=== PATIENT | female | born 1935 | race Two or more races ===

== ENCOUNTER → 2016-04-12 | Outpatient (CLI) | payer OTHER, MEDICAID ==
--- NOTE | 2016-04-12 17:08 | US ---
Complete Renal Ultrasound With Doppler Indication: Hypertension and an 81-year-old female; evaluate for renal artery stenosis.. Comparison: Renal sonography without Doppler assessment February 07, 2016. Findings: The kidneys are normal size. No hydronephrosis, shadowing renal calculi, or focal scarring. The echo genicity is normal. Renal measurements: Right: 8.6 cm long Left: 10.5 cm long Renal parenchymal thickness: Normal bilaterally. Doppler Evaluation: RAR - Renal artery PSV/Aortic PSV ( Normal is < 3.5) Right: 1.03 Left: 1.14 Right kidney: Peak systolic velocities in the main renal artery as follows: Proximal: 125 cm/sec Segmental arterial flow: Normal waveforms and upstroke times. Resistive index main renal artery, 0.87. (normal < 0.7) Upstroke times range between 37 and 51 (normal < 70 msec) Left kidney: Peak systolic velocities in the main renal artery as follows: Proximal: 138 cm/sec Segmental arterial flow: Normal waveforms and upstroke times. Resistive main renal artery; 0.84. Upstroke times range between 29 and 51 No abnormality of the renal veins is identified. Impression: Mild elevation in resistive indices with no convincing evidence for significant renal art erial stenosis to account for hypertension..
== END ==
LOC: FIMAGING 10:27
PROVIDERS: ATTEND Nurse Practitioner Family
DX: I10 Essential (primary) hypertension (principal)

== ENCOUNTER → 2016-09-22 | Outpatient (CLI) | payer OTHER, MEDICAID | LOC: FIMAGING 15:36 | PROVIDERS: ATTEND Family Medicine | DX: Z12.31 Encounter for screening mammogram for malignant neoplasm of breast (principal) | CPT/HCPCS: G0202 ==

== ENCOUNTER → 2017-04-30 | Outpatient (CLI) | payer OTHER, MEDICAID | LOC: FIMAGING 12:22 | PROVIDERS: ATTEND Family Medicine | DX: M43.17 Spondylolisthesis, lumbosacral region (principal); M51.36 Other intervertebral disc degeneration, lumbar region; M41.9 Scoliosis, unspecified; M54.9 Dorsalgia, unspecified; Z79.899 Other long term (current) drug therapy ==

== ENCOUNTER → 2017-06-30 | Outpatient (CLI) | payer OTHER, MEDICAID | LOC: FIMAGING 11:06 | PROVIDERS: ATTEND Physical Medicine & Rehabilitation | DX: M51.37 Other intervertebral disc degeneration, lumbosacral region (principal); M43.16 Spondylolisthesis, lumbar region ==

== ENCOUNTER → 2017-09-24 | Outpatient (CLI) | payer OTHER, MEDICAID | LOC: FIMAGING 12:53 | PROVIDERS: ATTEND Family Medicine | DX: Z12.31 Encounter for screening mammogram for malignant neoplasm of breast (principal) ==

== ENCOUNTER → 2017-12-13 | Outpatient (CLI) | payer OTHER, MEDICAID | LOC: BHFA 14:00 | PROVIDERS: ATTEND Internal Medicine Interventional Cardiology | DX: R60.9 Edema, unspecified (principal) ==

== ENCOUNTER 2018-01-14 23:52 | Emergency (ER) | payer OTHER, MEDICAID ==
[2018-01-15] MEDS ORDERED: ACETAMINOPHEN 500 MG TAB PO ONE (00:45)
[2018-01-15 00:47] VITALS: BP 156/59
--- NOTE | 2018-01-15 00:48 | EDPHY ---
H & P Stated Complaint: Increasing BP, headache Time Seen by Provider: 01/15/18 00:24 HPI/ROS: HPI The patient presents with elevated blood pressure readings tonight as high as 220 systolic in the setting of a mild diffuse throbbing headache. The patient has a longstanding history of hypertension. About 2 weeks ago she was taken off of metoprolol because it was believed to be causing a dry mouth. She was switched to atenolol. Today she had follow-up at [facility], there she was hypertensive with systolic in the 200s. The recommendation was for her to increase the atenolol dose and begin hydrochlorothiazide. She took both of these medications tonight, however her blood pressure remained elevated and she became concerned. She has had headaches that feel identical previously in the setting of high blood pressure. She has no changes in her vision, weakness of her arms or legs or any dizziness. She does not have any chest pain.. REVIEW OF SYSTEMS 10 systems were reviewed and negative with the exception of the elements mentioned in the history of present illness. PMHx: Hypertension Soc Hx: Here with her PHYSICAL General Appearance: Alert, no distress Eyes: Pupils equal and round no pallor or injection ENT, Mouth: Mucous membranes moist Respiratory: There are no retractions, lungs are clear to auscultation Cardiovascular: Regular rate and rhythm Gastrointestinal: Abdomen is soft and non-tender, no masses, bowel sounds normal Neurological: A&O, moves all extremities Skin: Warm and dry, no rashes Musculoskeletal: Neck is supple non tender Extremities: symmetrical, full range of motion Psychiatric: Patient is oriented X 3, there is no agitation Source: Patient, Family Exam Limitations: No limitations - Personal History Current Tetanus Diphtheria and Acellular Pertussis (TDAP): Yes - Medical/Surgical History Hx Asthma: No Hx Chronic Respiratory Disease: No Hx Diabetes: No Hx Cardiac Disease: No Hx Renal Disease: No Hx Cirrhosis: No Hx Alcoholism: No Hx HIV/AIDS: No Hx Splenectomy or Spleen Trauma: No Other PMH: HTN, MRI abnormal?, hysterectomy, hypothyroid. - Social History Smoking Status: Former smoker Constitutional: Initial Vital Signs Temperature (C) 36.7 C 01/14/18 23:57 Heart Rate 67 01/14/18 23:57 Respiratory Rate 17 01/14/18 23:57 Blood Pressure 247/89 H 01/14/18 23:57 O2 Sat (%) 95 01/14/18 23:57 O2 Delivery Mode Room Air Allergies/Adverse Reactions: codiene Allergy (Intermediate, Uncoded 01/14/18 23:54) Vomiting Home Medications: Medication Instructions Recorded Raloxifene HCl [Evista] 60 mg PO DAILY 01/01/12 Ranitidine HCl [Ranitidine HCl 300 300 mg PO DAILY18 PRN 01/01/12 mg] Zolpidem Tartrate [Ambien 5MG (*)] 5 mg PO HS PRN 01/01/12 Calcium Carbonate [Oyster Shell 1,500 mg PO DAILY 01/05/12 Calcium 500 mg (*)] Herbals/Supplements -Info Only 1 each PO AD 01/05/12 Levothyroxine [Synthroid 88 mcg 88 mcg PO DAILY06 01/05/12 (*)] Glucosamine Sulfate [Glucosamine 500 mg PO DAILY 12/25/15 Sulfate 500 MG (*)] Hydrochlorothiazide [HCTZ (*)] 25 mg PO DAILY 12/25/15 Magnesium Oxide [Magnesium Oxide 400 mg PO DAILY 12/25/15 400 mg (*)] Olmesartan Medoxomil [Benicar 20 20 mg PO DAILY 12/25/15 mg (*)] Pregabalin [Lyrica 75mg (*)] 75 mg PO BID 12/25/15 amLODIPine BESYLATE [Norvasc 10 mg 10 mg PO DAILY@18 12/25/15 (*)] Acetaminophen [Tylenol 325mg (*)] 650 mg PO Q4HRS PRN #0 tab 12/27/15 Levothyroxine [Synthroid 112 mcg 112 mcg PO DAILY AT 6AM #30 tab 12/27/15 (*)] Atenolol 01/14/18 hydrALAZINE 01/14/18 Medical Decision Making Differential Diagnosis: This is an 82-year-old female with hypertension, currently undergoing change of her medication regimen. About 2 weeks ago she was taken off metoprolol and changed to atenolol. On follow-up today blood pressures remained elevated in her atenolol dose was doubled and she was started on hydrochlorothiazide. She took these medications tonight, however was concerned because her blood pressures remained elevated with systolics in the 200s. Initially here her blood pressure was elevated with systolics in the 200. However without any intervention blood pressure has come down to 156/86. She does have a mild headache, however does not have any neurologic deficits making CVA quite unlikely. I have a had a long conversation with the patient and her about blood pressure control and need to follow the trend of her blood pressure verses acting on high readings. I have encouraged them to continue the current medications. [facility] and I feel this is appropriate. I do not observe any signs of hypertensive emergency at this time. Departure - Departure Disposition: Home, Routine, Self-Care Clinical Impression: HTN (hypertension) Qualifiers: Hypertension type: essential hypertension Qualified Code(s): I10 - Essential ( primary) hypertension Headache Qualifiers: Headache type: unspecified Headache chronicity pattern: acute headache Intractability: not intractable Qualified Code(s): R51 - Headache Condition: Good Instructions: Chronic Hypertension (ED) Additional Instructions: Please continue to take your blood pressure medicines as prescribed by [facility]. Please check your blood pressure once daily. Return to the emergency department if worse in any way. Referrals: Sd Ivory DO [Primary Care Provider] - As per Instructions
== END 2018-01-15 00:55 | disposition home or self-care (01) ==
DX: I10 Essential (primary) hypertension (principal); R51 Headache; E03.9 Hypothyroidism, unspecified; Z87.891 Personal history of nicotine dependence

== ENCOUNTER 2018-02-18 19:51 | Inpatient (IN) | payer OTHER, MEDICAID ==
--- NOTE | 2018-02-18 19:59 | EDPHY ---
H & P Time Seen by Provider: 02/18/18 19:57 HPI/ROS: CHIEF COMPLAINT: Cardiac alert HISTORY OF PRESENT ILLNESS: History is obtained through the family assisting and interpreting with Kaleigh. She has a history of hypertension and has been changing medications recently, blood pressure was 238 systolic at home and so EMS was called. She has had associated nausea fatigue and discomfort in the back of her head today. Her last episode of severe nausea or was just before the EMS arrived, she feels better now. Not associated with chest pain or shortness of breath. No palpitations or syncope. No change in mental status. EMS called cardiac alert because of her 12 lead done in the pre-hospital. REVIEW OF SYSTEMS: Eye: No blurry or double vision ENT: no sore throat Cardiac: no chest pain or syncope Pulmonary: no cough or SOB Abdomen: no vomiting, diarrhea, abdominal pain Musculoskeletal: no back pain or neck pain Skin: no rash Neuro: HPI, generally feels weak Constitutional: no fever : no urinary symptoms A comprehensive 10 point review of systems is otherwise negative aside from elements mentioned in the history of present illness. PAST MEDICAL HISTORY: Hypertension and thyroid, gynecologic surgery Social history: Here with and daughter and family General Appearance: Alert and conversant, cooperative. Eyes: No scleral icterus. ENT, Mouth: Normal mucous membranes. Respiratory: Normal respiratory effort, breath sounds equal, lungs are clear to auscultation. Cardiovascular: Regular rate and rhythm. Gastrointestinal: Abdomen is soft and non tender. Neurological: Alert, face symmetric, normal motor and sensory in extremities. Normal speech in mental status per family. Skin: Warm and dry, no rashes. Not diaphoretic. Musculoskeletal: No peripheral edema. Psychiatric: Not agitated. Emergency Department course/MDM: 1957: Case and EKG discussed with Dr. Mcdaniel, I do not think this is an emergent ST elevation MA. Patient has hypertension. Plan for head CT with head symptoms and hypertension , labs to include troponin and electrolytes, chest x-ray. 2027: Noted to have hyperkalemia with potassium 6.2, treated with insulin glucose and bicarbonate. Hyponatremia with sodium 120. Admission hospitalist service. 2030: BP 188/53, will not treat right now with anti hypertensives, will monitor. Smoking Status: Former smoker Constitutional: Initial Vital Signs Temperature (C) 36.2 C 02/18/18 19:51 Heart Rate 60 12/03/18 19:51 Respiratory Rate 22 H 02/18/18 19:51 Blood Pressure 226/108 H 02/18/18 19:51 O2 Sat (%) 94 02/18/18 19:51 O2 Delivery Mode Nasal Cannula O2 (L/minute) 2 Allergies/Adverse Reactions: amlodipine [From Norvasc] Allergy (Severe, Verified 02/18/18 21:16) Unknown estradiol Allergy (Severe, Verified 02/18/18 21:16) Unknown labetalol Allergy (Severe, Verified 02/18/18 21:16) lisinopril Allergy (Severe, Verified 02/18/18 21:17) Unknown codiene Allergy (Intermediate, Uncoded 01/14/18 23:54) Vomiting Home Medications: Medication Instructions Recorded Aspirin EC [Aspirin EC 81 mg (*)] 81 mg PO DAILY 02/18/18 Calcium Carb W/Vit D [Calcium Carb 500 mg PO BIDMEAL 02/18/18 W/Vit D 500/200 (*)] Cyanocobalamin (Vitamin B-12) 2,500 mcg SL DAILY 02/18/18 [Vitamin B-12] Herbals/Supplements -Info Only 1 unit PO DAILY 02/18/18 Hydrochlorothiazide [HCTZ (*)] 25 mg PO DAILY 02/18/18 Levothyroxine [Synthroid 88 mcg 88 mcg PO DAILY06 02/18/18 (*)] Losartan Potassium [Cozaar 50 mg 50 mg PO BID 02/18/18 (*)] Magnesium Oxide [Magnesium Oxide 400 mg PO DAILY 02/18/18 400 mg (*)] Multivitamins [Multivitamin (*)] 1 each PO DAILY 02/18/18 Nebivolol HCl [Bystolic 5 mg (*)] 10 mg PO DAILY 02/18/18 Nortriptyline HCl [Pamelor 25 mg 25 mg PO BID 02/18/18 (*)] Raloxifene HCl [Evista 60mg (RX)] 60 mg PO DAILY 02/18/18 Ranitidine HCl [Zantac] 300 mg PO DAILY@1800 PRN 02/18/18 Spironolactone [Aldactone 25 MG 25 mg PO DAILY 02/18/18 (*)] Zolpidem Tartrate [Ambien 5MG (*)] 5 mg PO HS PRN 02/18/18 guanFACINE HCL [Guanfacine HCl 1 2 mg PO HS 02/18/18 MG (*)] hydrALAZINE [Apresoline 25 mg (RX)] 25 mg PO TID 02/18/18 Medical Decision Making - Diagnostics EKG Interpretation: 12-lead EKG interpreted by me; official reading is in computer system. My interpretation is sinus rhythm first-degree AV block and late anterior RS transition, no acute ST elevation Imaging Results: Imaging Impressions Chest X-Ray 02/18/18 19:57 Impression: 1. Mild fluid overload/CHF suspected. Head CT 02/18/18 20:07 Impression: 1. Stable appearing aneurysm left MCA. 2. No hemorrhage, mass effect, or definite acute peripheral infarct. 3. Mild to moderate stable nonspecific hypodensities in the white matter of bilateral cerebral hemispheres. Differential diagnosis includes microvascular ischemic disease, post-infectious/post-inflammatory sequela, atypical demyelinating disease, or migraine-related sequela. Small white matter lacunar infarcts may also have this appearance. 4. Mild to moderate stable atrophy. If symptoms worsen, additional imaging may be necessary. Findings discussed with Rajinder Jimenez M.D. at 21:01 hour, 02/18/2018. Imaging: Discussed imaging studies w/ at home independent call center agent Radiologist Differential Diagnosis: Differential for weakness considered including but not limited to stroke, ACS, metabolic, infectious Consult/Admit Bed Type: [facility] 837pm Critical Care Time: Critical care time spent by me, Dr. Jimenez, exclusively with the care of this patient was 45 minutes, exclusive of PA or WOOD TOOL MAKER time and exclusive of separate procedures. The organ system at risk was metabolic and I ordered multiple diagnostics, IV insulin glucose and bicarbonate to stabilize the patient and prevent worsening of the patient's condition. - Data Points Laboratory Results: Laboratory Results 02/18/18 19:55 02/18/18 19:55 02/18/18 02/18/18 02/18/18 20:01 19:55 19:55 WBC 8.41 10^3/uL 10^3/uL (3.80-9.50) RBC 4.47 10^6/uL 10^6/uL (4.18-5.33) Hgb 13.6 g/dL g/dL (12.6-16.3) Hct 38.2 % % (38.0-47.0) MCV 85.5 fL fL (81.5-99.8) MCH 30.4 pg pg (27.9-34.1) MCHC 35.6 g/dL g/dL (32.4-36.7) RDW 13.3 % % (11.5-15.2) Plt Count 284 10^3/uL 10^3/uL (150-400) MPV 8.8 fL fL (8.7-11.7) Neut % (Auto) 66.8 % % (39.3-74.2) Lymph % (Auto) 23.2 % % (15.0-45.0) [place] % (Auto) 8.1 % % (4.5-13.0) Eos % (Auto) 1.1 % % (0.6-7.6) Baso % (Auto) 0.2 % L % (0.3-1.7) Nucleat RBC Rel Count 0.0 % % (0.0-0.2) Absolute Neuts (auto) 5.62 10^3/uL 10^3/uL (1.70-6.50) Absolute Lymphs (auto) 1.95 10^3/uL 10^3/uL (1.00-3.00) Absolute Monos (auto) 0.68 10^3/uL 10^3/uL (0.30-0.80) Absolute Eos (auto) 0.09 10^3/uL 10^3/uL (0.03-0.40) Absolute Basos (auto) 0.02 10^3/uL 10^3/uL (0.02-0.10) Absolute Nucleated RBC 0.00 10^3/uL 10^3/uL (0-0.01) Immature Gran % 0.6 % % (0.0-1.1) Immature Gran # 0.05 10^3/uL 10^3/uL (0.00-0.10) Sodium 120 mEq/L L mEq/L (135-145) Potassium 6.2 mEq/L H mEq/L (3.3-5.0) Chloride 87 mEq/L L mEq/L (97-110) Carbon Dioxide 22 mEq/l mEq/l (22-31) Anion Gap 11 mEq/L mEq/L (6-14) BUN 26 mg/dL H mg/dL (7-23) Creatinine 0.9 mg/dL mg/dL (0.6-1.0) Estimated GFR 60 Glucose 141 mg/dL H mg/dL (70-100) Calcium 9.5 mg/dL mg/dL (8.5-10.4) POC Troponin I 0.03 ng/mL ng/mL (0.00-0.08) Medications Given: Discontinued Medications Dextrose (Dextrose 50% Syringe) 25 gm IVP EDNOW ONE Stop: 02/18/18 20:28 Last Admin: 02/18/18 20:42 Dose: 25 gm Insulin Human Regular (Humulin R) 10 unit IVP EDNOW ONE Stop: 02/18/18 20:28 Last Admin: 02/18/18 20:42 Dose: 10 units Sodium Bicarbonate (Sodium Bicarbonate) 50 meq IVP EDNOW ONE Stop: 02/18/18 20:28 Last Admin: 02/18/18 20:43 Dose: 50 meq Point of Care Test Results: Chemistry 02/18/18 20:01 POC Troponin I 0.03 ng/mL ng/mL (0.00-0.08) Departure - Departure Disposition: [facility] Inpatient Acute Clinical Impression: Hyperkalemia, Hyponatremia Hypertension Qualifiers: Hypertension type: unspecified Qualified Code(s): I10 - Essential (primary) hypertension Condition: Serious
[2018-02-18 20:05] LABS: PLATELET COUNT 284 10^3/uL (150-400)
--- NOTE | 2018-02-18 20:13 | CPEKG ---
Test Reason : OPEN Blood Pressure : / mmHG Vent. Rate : 059 BPM Atrial Rate : 059 BPM P-R Int : 231 ms QRS Dur : 107 ms QT Int : 441 ms P-R-T Axes : 045 -17 033 degrees QTc Int : 437 ms Sinus rhythm Prolonged HI interval Anterior infarct, old Confirmed by Rajinder Jimenez ([id number]) on 02/18/2018 8:13:42 PM Referred By: Confirmed By:Rajinder Jimenez
[2018-02-18] MEDS ORDERED: SODIUM BICARBONATE 50 MEQ/50 ML SYR IVP ONE (20:27)
[2018-02-18] MEDS ORDERED: D50W 25 GM/50 ML SYR IVP ONE (20:27)
[2018-02-18] MEDS ORDERED: INSULIN REGULAR HUMAN 100 UNIT/ML UNIT IVP ONE (20:27)
[2018-02-18] MEDS ORDERED: ONDANSETRON DISINTEGRATING 4 MG TAB PO PRN (22:22)
[2018-02-18] MEDS ORDERED: ONDANSETRON 4 MG/2 ML VIAL IVP PRN (22:22)
[2018-02-18] MEDS ORDERED: hydrALAZINE 25 MG TAB PO PRN (22:25)
[2018-02-18] MEDS ORDERED: CALCIUM GLUCONATE 50 ML IV ONE (22:28)
[2018-02-18] MEDS ORDERED: SODIUM POLY SULF 15 GM/60 ML BOTTLE PO ONE (22:28)
--- NOTE | 2018-02-19 00:26 | PDGENHP ---
History and Physical - Chief Complaint Nausea, hypertension - History of Present Illness 82 yo F w/ hx of severe HTN, pHTN, and hypothyroidism presents with nausea and elevated BP. The patient is Farsi speaking mostly. She denies formal life skills educator and prefers to have her daughter translate for us. The patient has a known history of difficult to control HTN. Review of recent outpatient provider notes demonstrates recent attempts to control BP with medications. On 01/21 spironolactone was added to her regimen of losartan, nebivolol, and hydrochlorothiazide. Despite this she continues to have episodes of severely elevated BP. Today she noted a headache and felt nauseous. Her SBP was noted to be 240 so she was brought to the ED. Since her arrival her BP has improved without intervention. Additionally, she was found to be hyperkalemic and hyponatremic. At the time of my evaluation she is symptom free. Case discussed with Dr. Neri; records reviewed and summarized above. History Information - Allergies/Home Medication List Allergies/Adverse Reactions: amlodipine [From [facility]] Allergy (Severe, Verified 02/18/18 21:16) Unknown estradiol Allergy (Severe, Verified 02/18/18 21:16) Unknown labetalol Allergy (Severe, Verified 02/18/18 21:16) lisinopril Allergy (Severe, Verified 02/18/18 21:17) Unknown codiene Allergy (Intermediate, Uncoded 01/14/18 23:54) Vomiting Home Medications: Aspirin EC [Aspirin EC 81 mg (*)] 81 mg PO DAILY 02/18/18 [Last Taken 02/18/18] Calcium Carb W/Vit D [Calcium Carb W/Vit D 500/200 (*)] 500 mg PO BIDMEAL [Last Taken Unknown] Cyanocobalamin (Vitamin B-12) [Vitamin B-12] 2,500 mcg SL DAILY 02/18/18 [Last Taken Unknown] Herbals/Supplements -Info Only 1 unit PO DAILY 02/18/18 [Last Taken Unknown] Hydrochlorothiazide [HCTZ (*)] 25 mg PO DAILY 02/18/18 [Last Taken 02/18/18] Levothyroxine [Synthroid 88 mcg (*)] 88 mcg PO DAILY06 02/18/18 [Last Taken 06/03] Losartan Potassium [Cozaar 50 mg (*)] 50 mg PO BID 02/18/18 [Last Taken 02/18/18 ] Magnesium Oxide [Magnesium Oxide 400 mg (*)] 400 mg PO DAILY 02/18/18 [Last Taken Unknown] Multivitamins [Multivitamin (*)] 1 each PO DAILY 02/18/18 [Last Taken Unknown] Nebivolol HCl [Bystolic 5 mg (*)] 10 mg PO DAILY 02/18/18 [Last Taken 02/18/18] Nortriptyline HCl [Pamelor 25 mg (*)] 25 mg PO BID 02/18/18 [Last Taken 02/18/18 ] Raloxifene HCl [Evista 60mg (RX)] 60 mg PO DAILY 02/18/18 [Last Taken 02/18/18] Ranitidine HCl [Zantac] 300 mg PO DAILY@1800 PRN 02/18/18 [Last Taken Unknown] Spironolactone [Aldactone 25 MG (*)] 25 mg PO DAILY 02/18/18 [Last Taken ] Zolpidem Tartrate [Ambien 5MG (*)] 5 mg PO HS PRN 02/18/18 [Last Taken Unknown] guanFACINE HCL [Guanfacine HCl 1 MG (*)] 2 mg PO HS 02/18/18 [Last Taken ] hydrALAZINE [Apresoline 25 mg (RX)] 25 mg PO TID 02/18/18 [Last Taken 02/18/18 12:00] I have personally reviewed and updated: family history, medical history - Past Medical History hypertension Additional medical history: Hypothyroid - Surgical History Additional surgical history: Cervical nerve block - Family History Additional family history: Denies family history of hypertension - Social History Smoking Status: Former smoker Review of Systems Review of Systems: ROS: 10pt was reviewed & negative except for what was stated in HPI & below Physical Exam Physical Exam: Temp Pulse Resp BP Pulse Ox 36.9 C 54 L 15 138/34 H 98 02/19/18 00:00 02/19/18 00:00 02/19/18 00:00 02/19/18 00:00 02/19/18 00:00 O2 (L/minute) 2 Constitutional: no apparent distress, not in pain Eyes: PERRL, EOMI Ears, Nose, Mouth, Throat: moist mucous membranes, no oral mucosal ulcers Cardiovascular: regular rate and rhythym, no murmur, rub, or gallop Respiratory: no respiratory distress, clear to auscultation Gastrointestinal: normoactive bowel sounds, soft, non-tender abdomen Skin: warm, normal color Musculoskeletal: full muscle strength, no muscle tenderness Neurologic: AAOx3, CN II-XII Intact Psychiatric: interacting appropriately, not anxious Lab Data & Imaging Review 02/18/18 19:55 02/18/18 22:35 WBC 8.41 10^3/uL (3.80-9.50) 02/18/18 19:55 RBC 4.47 10^6/uL (4.18-5.33) 02/18/18 19:55 Hgb 13.6 g/dL (12.6-16.3) 02/18/18 19:55 Hct 38.2 % (38.0-47.0) 02/18/18 19:55 MCV 85.5 fL (81.5-99.8) 02/18/18 19:55 MCH 30.4 pg (27.9-34.1) 02/18/18 19:55 MCHC 35.6 g/dL (32.4-36.7) 02/18/18 19:55 RDW 13.3 % (11.5-15.2) 02/18/18 19:55 Plt Count 284 10^3/uL (150-400) 02/18/18 19:55 MPV 8.8 fL (8.7-11.7) 02/18/18 19:55 Neut % (Auto) 66.8 % (39.3-74.2) 02/18/18 19:55 Lymph % (Auto) 23.2 % (15.0-45.0) 02/18/18 19:55 [place] % (Auto) 8.1 % (4.5-13.0) 02/18/18 19:55 Eos % (Auto) 1.1 % (0.6-7.6) 02/18/18 19:55 Baso % (Auto) 0.2 % (0.3-1.7) L 02/18/18 19:55 Nucleat RBC Rel Count 0.0 % (0.0-0.2) 02/18/18 19:55 Absolute Neuts (auto) 5.62 10^3/uL (1.70-6.50) 02/18/18 19:55 Absolute Lymphs (auto) 1.95 10^3/uL (1.00-3.00) 02/18/18 19:55 Absolute Monos (auto) 0.68 10^3/uL (0.30-0.80) 02/18/18 19:55 Absolute Eos (auto) 0.09 10^3/uL (0.03-0.40) 02/18/18 19:55 Absolute Basos (auto) 0.02 10^3/uL (0.02-0.10) 02/18/18 19:55 Absolute Nucleated RBC 0.00 10^3/uL (0-0.01) 02/18/18 19:55 Immature Gran % 0.6 % (0.0-1.1) 02/18/18 19:55 Immature Gran # 0.05 10^3/uL (0.00-0.10) 02/18/18 19:55 Sodium 125 mEq/L (135-145) L 02/18/18 22:35 Potassium 5.1 mEq/L (3.3-5.0) H 02/18/18 22:35 Chloride 91 mEq/L (97-110) L 02/18/18 22:35 Carbon Dioxide 24 mEq/l (22-31) 02/18/18 22:35 Anion Gap 10 mEq/L (6-14) 02/18/18 22:35 BUN 23 mg/dL (7-23) 02/18/18 22:35 Creatinine 0.8 mg/dL (0.6-1.0) 02/18/18 22:35 Estimated GFR > 60 02/18/18 22:35 Glucose 50 mg/dL (70-100) L 02/18/18 22:35 POC Glucose 126 mg/dL (70-100) H 02/18/18 21:23 Serum Osmolality 264 mosmo/kg (280-297) L 02/18/18 22:35 Calcium 9.2 mg/dL (8.5-10.4) 02/18/18 22:35 POC Troponin I 0.03 ng/mL (0.00-0.08) 02/18/18 20:01 NT-Pro-B Natriuret Pep 2860 pg/mL (0-450) H 02/18/18 22:35 TSH 1.770 uIU/mL (0.465-4.680) 02/18/18 22:35 Imaging Review: Imaging Impressions Chest X-Ray 02/18/18 19:57 Impression: 1. Mild fluid overload/CHF suspected. Head CT 02/18/18 20:07 Impression: 1. Stable appearing aneurysm left MCA. 2. No hemorrhage, mass effect, or definite acute peripheral infarct. 3. Mild to moderate stable nonspecific hypodensities in the white matter of bilateral cerebral hemispheres. Differential diagnosis includes microvascular ischemic disease, post-infectious/post-inflammatory sequela, atypical demyelinating disease, or migraine-related sequela. Small white matter lacunar infarcts may also have this appearance. 4. Mild to moderate stable atrophy. If symptoms worsen, additional imaging may be necessary. Findings discussed with Rajinder Jimenez M.D. at 21:01 hour, 02/18/2018. Assessment & Plan Assessment: 82 yo F w/ hypothyroid and HTN presents w/ hypertensive emergency, hyperkalemia , and hypokalemia. Plan: 1. Hypertensive emergency - Presented with DORSEY, nausea, and SBP of 240. Her BP has proven difficult to control despite intensive outpatient management. On 01/21 spironolactone was added to her regimen of losartan, nebivolol, and hydrochlorothiazide. She has allergies to amlodipine and lisinopril. - Monitor in SDU - Aim for SBP<190 overnight - Will need to hold HCTZ and spironolactone due to electrolyte abnormalities, as a result I will double hydralazine dose to 50 mg TID and maintain other dosing - Work-up for secondary causes of HTN initiated by PCP (hyperaldo, pheo); would request these records tomorrow 2. Hyperkalemia - 6.2 on admission with peaked T waves noted on ECG. Treated with insulin/dextrose, calcium, and kayexelate. K now 5.1 after only 2 hours. I suspect this is due to addition of spironolactone to med regimen already containing ARB. - Hold spironolactone - I will continue ARB noting K is improving and her BP needs it - Monitor on telemetry - Monitor BMP 3. Hyponatremia - I suspect this is multifactorial from low sodium diet, high water intake, and HCTZ therapy. Serum sodium 120 on admission, increased to 125 in 2.5 hours without intervention. - Will start D5W @ 75 mL/hr to slow down rate of correction - Hold HCTZ - Recheck BMP at 0300 and 0600, adjust therapy accordingly - Chest Osms, [place]ветлана 4. Chronic, diastolic heart failure - 01/03 TTE revealed Grade 2 diastolic dysfunction. BNP elevated on admission with mild vascular congestion seen on CXR. - Control BP as above - Consider furosemide after stabilization of sodium - Daily weights, monitor I/Os 5. pHTN - RVSP 58 mm Hg on last TTE. Diet - Cardiac Code - Full Ppx - LMWH Dispo - Admit under inpatient status noting need for BP management and slow correction of serum sodium.
[2018-02-19] MEDS ORDERED: D5W 1,000 ML IV SCH (00:30)
[2018-02-19] MEDS ORDERED: guanFACINE HCL 1 MG TAB PO PRN (00:34)
[2018-02-19] MEDS: LEVOTHYROXINE 88 MCG TAB PO SCH (05:11)
[2018-02-19] MEDS: ACETAMINOPHEN 325 MG TAB PO PRN ×3 (05:11→21:08)
[2018-02-19 06:10] LABS: PLATELET COUNT 264 10^3/uL (150-400)
[2018-02-19] MEDS: ASPIRIN EC 81 MG TAB PO SCH (08:44)
[2018-02-19] MEDS: MAGNESIUM OXIDE 400 MG TAB PO SCH (08:44)
[2018-02-19] MEDS: LOSARTAN POTASSIUM 50 MG TAB PO SCH ×2 (08:44→21:08)
[2018-02-19] MEDS: MULTIVITAMINS 1 EACH TAB PO SCH (08:44)
[2018-02-19] MEDS: CALCIUM CARB W/VIT D 500 MG TAB PO SCH ×2 (08:44→18:02)
[2018-02-19] MEDS: ENOXAPARIN 40 MG/0.4 ML SYR SC SCH (08:46)
[2018-02-19] MEDS ORDERED: NON-FORMULARY NEW DRUG (Herbals/Supplements -Info Only 1 UNIT) PO SCH (09:00)
[2018-02-19] MEDS ORDERED: hydrALAZINE 25 MG TAB PO SCH (09:00)
[2018-02-19] MEDS ORDERED: NEBIVOLOL HCL 5 MG TAB PO SCH (09:00)
--- NOTE | 2018-02-19 09:33 | PDMN ---
Medical Necessity Medical necessity: [facility] General Admission; 82 yo w/ hypertensive emergency : DORSEY, nausea, and SBP of 240. Pt also hyperkalemic 6.2, peaked T wave on ECG; hyponatremic 120. IVF and antihypertensives started. [place] [facility] [place] for hypertensive emergency and severe electrolyte abnormalities. Hx severe HTN, pHTN, and hypothyroidism. Change to IP status @0043 per MD order
--- NOTE | 2018-02-19 11:02 | ASMTCMCOM ---
CM Note CM Note Notes: Pt is an 82 yo female, primary language is Farsi. Presents with nausea and elevated BP. Pt has history of hypertension and hypekalemia. Pt reports she prefers her daughter interpret for her and not use formal interpretor services. Dtr is at bedside. Pt lives in [place] with and daughter. Pt discussed in rounds. doing med change. Likely discharge Independent with family supports once medically stable. Plan: Independent once medically stable. Date Signed: 02/19/2018 11:01 AM Electronically Signed By:MARGIE Nunez
--- NOTE | 2018-02-19 11:28 | PDGENHP ---
History and Physical - Chief Complaint Nausea, elevated blood pressure - History of Present Illness Layton Hartman is a very pleasant 82-year-old female with longstanding severe difficult to control hypertension, diastolic heart failure and hypothyroidism who presented with nausea and a persistently elevated BP. Spironolactone was added 01/21/2018 in addition to losartan nebivolol and hydrochlorothiazide. However patient states she recently stopped her hydrochlorothiazide. She has chronic back pain and chronic headaches which are worse in the afternoon. Her blood pressure also rise in the afternoon associated with her pain. Patient's is responsible for administering medications and he believes he does them correctly. Patient is use amlodipine in the past with leg swelling. She has reported allergy to labetalol but cannot remember this. She currently takes nebivolol without issue. She has no history of anaphylaxis. She was initially given antihypertensives emergency department and given Kayexalate and insulin for hyperkalemia. This morning she complains of mild headache and back pain but has no chest pain or shortness of breath. She denies fevers chills active nausea vomiting or worsening leg swelling. History Information - Allergies/Home Medication List Allergies/Adverse Reactions: amlodipine [From [facility]] Allergy (Severe, Verified 02/18/18 21:16) Unknown estradiol Allergy (Severe, Verified 02/18/18 21:16) Unknown labetalol Allergy (Severe, Verified 02/18/18 21:16) lisinopril Allergy (Severe, Verified 02/18/18 21:17) Unknown codiene Allergy (Intermediate, Uncoded 01/14/18 23:54) Vomiting Home Medications: Aspirin EC [Aspirin EC 81 mg (*)] 81 mg PO DAILY 02/18/18 [Last Taken 02/18/18] Calcium Carb W/Vit D [Calcium Carb W/Vit D 500/200 (*)] 500 mg PO BIDMEAL [Last Taken Unknown] Cyanocobalamin (Vitamin B-12) [Vitamin B-12] 2,500 mcg SL DAILY 02/18/18 [Last Taken Unknown] Herbals/Supplements -Info Only 1 unit PO DAILY 02/18/18 [Last Taken Unknown] Hydrochlorothiazide [HCTZ (*)] 25 mg PO DAILY 02/18/18 [Last Taken 02/18/18] Levothyroxine [Synthroid 88 mcg (*)] 88 mcg PO DAILY06 02/18/18 [Last Taken 06/03] Losartan Potassium [Cozaar 50 mg (*)] 50 mg PO BID 02/18/18 [Last Taken 02/18/18 ] Magnesium Oxide [Magnesium Oxide 400 mg (*)] 400 mg PO DAILY 02/18/18 [Last Taken Unknown] Multivitamins [Multivitamin (*)] 1 each PO DAILY 02/18/18 [Last Taken Unknown] Nebivolol HCl [Bystolic 5 mg (*)] 10 mg PO DAILY 02/18/18 [Last Taken 02/18/18] Nortriptyline HCl [Pamelor 25 mg (*)] 25 mg PO BID 02/18/18 [Last Taken 02/18/18 ] Raloxifene HCl [Evista 60mg (RX)] 60 mg PO DAILY 02/18/18 [Last Taken 02/18/18] Ranitidine HCl [Zantac] 300 mg PO DAILY@1800 PRN 02/18/18 [Last Taken Unknown] Spironolactone [Aldactone 25 MG (*)] 25 mg PO DAILY 02/18/18 [Last Taken ] Zolpidem Tartrate [Ambien 5MG (*)] 5 mg PO HS PRN 02/18/18 [Last Taken Unknown] guanFACINE HCL [Guanfacine HCl 1 MG (*)] 2 mg PO HS 02/18/18 [Last Taken ] hydrALAZINE [Apresoline 25 mg (RX)] 25 mg PO TID 02/18/18 [Last Taken 02/18/18 12:00] I have personally reviewed and updated: family history, medical history, social history, surgical history - Past Medical History hypertension Additional medical history: Hypothyroid - Surgical History Additional surgical history: Cervical nerve block - Family History Positive for: hypertension Additional family history: Denies family history of hypertension - Social History Smoking Status: Former smoker Review of Systems Review of Systems: ROS: 10pt was reviewed & negative except for what was stated in HPI & below Physical Exam Physical Exam: Temp Pulse Resp BP Pulse Ox 36.9 C 66 13 155/46 H 93 02/19/18 07:31 02/19/18 08:41 02/19/18 07:31 02/19/18 08:41 02/19/18 07:31 O2 (L/minute) 2 Constitutional: no apparent distress, appears nourished Eyes: PERRL, anicteric sclera Ears, Nose, Mouth, Throat: moist mucous membranes, hearing normal Cardiovascular: regular rate and rhythym, no murmur, rub, or gallop, other ( Trace lower extremity edema) Respiratory: no respiratory distress, no rales or rhonchi Gastrointestinal: normoactive bowel sounds, soft, non-tender abdomen Skin: warm, normal color Musculoskeletal: full muscle strength, no muscle tenderness Neurologic: AAOx3, sensation intact bilaterally Psychiatric: interacting appropriately, not anxious, not encephalopathic Lab Data & Imaging Review 02/19/18 05:55 02/19/18 05:55 02/11/18 Aldosterone 10 12/13/2017 TTE-LVH with grade 2 diastolic dysfunction present. Normal RV size and function. RVSP 58. WBC 8.49 10^3/uL (3.80-9.50) 02/19/18 05:55 RBC 3.76 10^6/uL (4.18-5.33) L 02/19/18 05:55 Hgb 11.2 g/dL (12.6-16.3) L 02/19/18 05:55 Hct 32.3 % (38.0-47.0) L 02/19/18 05:55 MCV 85.9 fL (81.5-99.8) 02/19/18 05:55 MCH 29.8 pg (27.9-34.1) 02/19/18 05:55 MCHC 34.7 g/dL (32.4-36.7) 02/19/18 05:55 RDW 12.9 % (11.5-15.2) 02/19/18 05:55 Plt Count 264 10^3/uL (150-400) 02/19/18 05:55 MPV 9.7 fL (8.7-11.7) 02/19/18 05:55 Neut % (Auto) 71.4 % (39.3-74.2) 02/19/18 05:55 Lymph % (Auto) 17.9 % (15.0-45.0) 02/19/18 05:55 Parke % (Auto) 9.0 % (4.5-13.0) 02/19/18 05:55 Eos % (Auto) 0.7 % (0.6-7.6) 02/19/18 05:55 Baso % (Auto) 0.2 % (0.3-1.7) L 02/19/18 05:55 Nucleat RBC Rel Count 0.0 % (0.0-0.2) 02/19/18 05:55 Absolute Neuts (auto) 6.06 10^3/uL (1.70-6.50) 02/19/18 05:55 Absolute Lymphs (auto) 1.52 10^3/uL (1.00-3.00) 02/19/18 05:55 Absolute Monos (auto) 0.76 10^3/uL (0.30-0.80) 02/19/18 05:55 Absolute Eos (auto) 0.06 10^3/uL (0.03-0.40) 02/19/18 05:55 Absolute Basos (auto) 0.02 10^3/uL (0.02-0.10) 02/19/18 05:55 Absolute Nucleated RBC 0.00 10^3/uL (0-0.01) 02/19/18 05:55 Immature Gran % 0.8 % (0.0-1.1) 02/19/18 05:55 Immature Gran # 0.07 10^3/uL (0.00-0.10) 02/19/18 05:55 Sodium 125 mEq/L (135-145) L 02/19/18 05:55 Potassium 4.6 mEq/L (3.3-5.0) 02/19/18 05:55 Chloride 92 mEq/L (97-110) L 02/19/18 05:55 Carbon Dioxide 27 mEq/l (22-31) 02/19/18 05:55 Anion Gap 6 mEq/L (6-14) 02/19/18 05:55 BUN 21 mg/dL (7-23) 02/19/18 05:55 Creatinine 0.7 mg/dL (0.6-1.0) 02/19/18 05:55 Estimated GFR > 60 02/19/18 05:55 Glucose 127 mg/dL (70-100) H 02/19/18 05:55 POC Glucose 151 mg/dL (70-100) H 02/19/18 02:18 Serum Osmolality 264 mosmo/kg (280-297) L 02/18/18 22:35 Calcium 8.8 mg/dL (8.5-10.4) 02/19/18 05:55 POC Troponin I 0.03 ng/mL (0.00-0.08) 02/18/18 20:01 NT-Pro-B Natriuret Pep 2860 pg/mL (0-450) H 02/18/18 22:35 TSH 1.770 uIU/mL (0.465-4.680) 02/18/18 22:35 Urine Osmolality 179 mosmo/kg (300-900) L 02/19/18 02:18 Ur Random Creatinine 22.7 mg/dL 02/19/18 02:18 Ur Random Sodium 19 mEq/L (30-90) L 02/19/18 02:18 Ur Random Urea Nitrogn 257.0 mg/dL 02/19/18 02:18 Assessment & Plan Assessment: 82-year-old female admitted with nausea and headache found to have malignant hypertension versus hypertensive emergency. Also with medication induced hyponatremia and hyperkalemia. Workup for hyper although is negative. Was unable to find records for pheo work up. Unclear whether patient is completely compliant with her medications are taking it correctly. I suspect chronic headaches and back pain are leading to worsening of afternoon hypertension. Combination of ARB and spironolactone likely causing hyperkalemia as well as hydrochlorothiazide inducing hyponatremia. # malignant hypertension # hyperkalemia # euvolemic hyponatremia # nausea # headaches # hypothyroidism Plan # initiate labetalol 200 mg p. O. Twice daily # stop outpatient hydralazine given difficulties with three times daily medications and blood pressure swings # continue ARB # will hold nebivolol for now due to start labetalol as above and discontinue on discharge # may retrial calcium channel charisma specifically extended release nifedipine a blood pressure still needs to be controlled next provider if actually deemed necessary # trend serum Na # will defer pheochromocytoma workup as outpatient.
--- NOTE | 2018-02-19 11:34 | HOSPPROG ---
Hospitalist Progress Note Assessment/Plan: 82 yo F w htn, hyponatremia, hyperkalemia hyponatremia: 2/2 diuretic therapy dc hypotonic fluids follow bid htn: large regimen 1. dc bystolic 2. start labetalol- family denies allergy 3. dc hydral and diuretics 4. follow bp 5. hyerpaldo workup neg as outpt hyperkalemia: 2/2 spironolactone headache: non focal neuro prn tylenol dispo: inpt floor Subjective: case d/w dr agudelo Objective: Vital Signs Temp Pulse Resp BP Pulse Ox 36.9 C 66 13 155/46 H 93 02/19/18 07:31 02/19/18 08:41 02/19/18 07:31 02/19/18 08:41 02/19/18 07:31 Laboratory Results 02/19/18 05:55 02/19/18 05:55 02/18/18 02/19/18 02/20/18 05:59 05:59 05:59 Intake Total 717 Output Total 100 Balance 617 - Physical Exam Constitutional: no apparent distress, appears nourished Eyes: PERRL, anicteric sclera, EOMI Ears, Nose, Mouth, Throat: moist mucous membranes, hearing normal Cardiovascular: regular rate and rhythym, no murmur, rub, or gallop Respiratory: no respiratory distress, no rales or rhonchi Gastrointestinal: normoactive bowel sounds, soft, non-tender abdomen Genitourinary: No barrios in urethra Skin: warm, normal color Musculoskeletal: full muscle strength Neurologic: AAOx3 ICD10 Worksheet Patient Problems: Problems Problem Status Onset Hyperkalemia Acute Hypertension Acute Hyponatremia Acute History of - hypertension Active Muscle pain Active Bradycardia Acute Complete heart block Acute Hypotension Acute
[2018-02-19] MEDS: CYANOCOBALAMIN 2500 MCG SL SCH (12:45)
[2018-02-19] MEDS: RALOXIFENE HCL 60 MG TAB PO SCH (12:45)
[2018-02-19] MEDS: NORTRIPTYLINE HCL 25 MG CAP PO SCH ×2 (12:45→21:01)
[2018-02-19] MEDS ORDERED: ZOLPIDEM TARTRATE 5 MG TAB PO PRN (16:03)
[2018-02-19] MEDS ORDERED: FAMOTIDINE 20 MG TAB PO PRN (18:00)
[2018-02-19] MEDS: LABETALOL HCL 200 MG TAB PO SCH (21:07)
[2018-02-20] MEDS: LEVOTHYROXINE 88 MCG TAB PO SCH ×2 (06:30→11:46)
[2018-02-20] MEDS: MAGNESIUM OXIDE 400 MG TAB PO SCH (09:38)
[2018-02-20] MEDS: CALCIUM CARB W/VIT D 500 MG TAB PO SCH (09:38)
[2018-02-20] MEDS: LABETALOL HCL 200 MG TAB PO SCH (09:38)
[2018-02-20] MEDS: LOSARTAN POTASSIUM 50 MG TAB PO SCH (09:38)
[2018-02-20] MEDS: MULTIVITAMINS 1 EACH TAB PO SCH (09:38)
[2018-02-20] MEDS: ASPIRIN EC 81 MG TAB PO SCH (09:39)
[2018-02-20] MEDS: CYANOCOBALAMIN 2500 MCG SL SCH (09:41)
--- NOTE | 2018-02-20 13:40 | ASMTLACE ---
LACE Length of stay for Answers: 1 day current admission Acuity / Level of Answers: Yes Care: Did the patient have an inpatient admission? Comorbidities - select Answers: Opioid dependence all that apply / Chronic pain Other Notes: HTN; Hypothyroid # of Emergency department Answers: 1-2 visits in the last 6 months Score: 10 Date Signed: 02/20/2018 01:40 PM Electronically Signed By:Sabine Woody RN
--- NOTE | 2018-02-20 13:42 | ASMTDCNOTE ---
Case Management Discharge Discharge Order Complete? Answers: Yes Patient to Obtain Answers: via Family Medications Transportation Arranged Answers: Family/Friends Discharge Comments Notes: Medically cleared for discharge to home with family support no current needs. Date Signed: 02/20/2018 01:42 PM Electronically Signed By:Sabine Woody RN
[2018-02-20] MEDS: ENOXAPARIN 40 MG/0.4 ML SYR SC SCH (13:47)
[2018-02-20] MEDS: NORTRIPTYLINE HCL 25 MG CAP PO SCH (13:54)
[2018-02-20] MEDS: RALOXIFENE HCL 60 MG TAB PO SCH (13:54)
[2018-02-20] MEDS ORDERED: hydrALAZINE 25 MG TAB PO ONE (15:00)
[2018-02-20 16:20] VITALS: BP 155/65
--- NOTE | 2018-02-21 04:48 | GDS ---
DISCHARGE DIAGNOSES: 1. Hypertensive emergency. 2. Hyponatremia secondary to diuretic therapy. 3. Hyperkalemia secondary to spironolactone. 4. Headache in the setting of hypertension, resolved. CONSULTANTS: None. HISTORY OF PRESENT ILLNESS: Please see history and physical dated February 19, 2018. In brief, the jhony panchal is an 82-year-old female with history of [id number] hypertension, who [facility] department with nausea, headache, and markedly elevated blood pressure with a systolic b lood pressure of 240. She was admitted to the hospital for further management. HOSPITAL COURSE: The patient admitted to the Med Surg unit. She was initially treated with hydralaz ine and continued on her losartan. She recently underwent hyper aldosterone workup in the outpatient setting, which appears to be normal. There is in addition there is a p.o. pheochromocytoma workup t hat is still pending, and she should follow up with her primary care physician regarding this. Ultim ately, her Bystolic was discontinued, and she was changed to labetalol 200 mg twice daily. Her selma nolactone was discontinued due to hyperkalemia, and her potassium normalized. Her hydrochlorothiazid e was discontinued due to hyponatremia, and her sodium has improved from 120 to 129 at the time of di scharge. She will need to have a followup basic metabolic panel on her outpatient visit within the n ext week to ensure her sodium has stabilized. We will continue her hydralazine 25 mg t.i.d. p.r.n. f or systolic blood pressure greater than 160. On the day of discharge, her blood pressure had improve d from 130s/50s to 150s/50s. Her heart rate has been in the 50s to 60s. I discussed the case with h outpatient Network Systems Analyst, Dr. Krause, and he agrees with the discharge plan. She will have close followup with [facility] within the next week. DISPOSITION: Patient is discharged to home in stable condition. FOLLOWUP: 1. MAGGIE [place] or Dr. Willem Krause at [facility] in [address] Sd Ivory, Primary Care. DISCHARGE MEDICATIONS: Please see [employer] for completed outpatient medication list. New medications on discharge include: Labetalol 200 mg p.o. b.i.d. #60, no refills. Discontinued medications: Nebivolol, spironolactone, and hydrochlorothiazide are discontinued as alexandria cribed above. Changed medications: Hydralazine 25 mg p.o. three times daily p.r.n. for systolic blood pressure gre ater than 160. She will continue her losartan 50 mg twice daily and all other outpatient medications as previously prescribed. /[id number]/MODL
== END 2018-02-20 16:04 | disposition home or self-care (01) | DRG 305 ==
LOC: F2N 21:35 → F1N 02-19 13:37
PROVIDERS: ADMIT Internal Medicine; ATTEND Hospitalist
DX: I16.1 Hypertensive emergency (principal); E87.1 Hypo-osmolality and hyponatremia; T50.2X5A Adverse effect of carbonic-anhydrase inhibitors, benzothiadiazides and other diuretics, initial encounter; E87.5 Hyperkalemia; T50.0X5A Adverse effect of mineralocorticoids and their antagonists, initial encounter; I50.32 Chronic diastolic (congestive) heart failure; E03.9 Hypothyroidism, unspecified; I27.20 Pulmonary hypertension, unspecified
CPT/HCPCS: 84484-PO; 96374; G0378; J0610; J1650; J1815

== ENCOUNTER 2018-03-02 17:53 | Inpatient (IN) | payer OTHER, MEDICAID ==
--- NOTE | 2018-03-02 18:02 | EDPHY ---
HPI/HX/ROS/PE/MDM Narrative: CHIEF COMPLAINT: Syncope, headache HPI: This patient is an 82 year old female with history of longstanding severe difficult to control hypertension, diastolic heart failure and hypothyroidism. She has several recent admissions secondary to her labile hypertension.and has had three recent changes in her antihypertensive medications over the past month including doubling her labetalol dose this week. Today, she presents following a syncopal episode associated with headache and lightheadedness similar to her prior presentations. She had taken Motrin for headache relief last night and this morning. Throughout the day, the patient had complained of lightheadedness, dizziness as well as headache. Her daughter at bedside reports the patient was sitting and asked for a glass of water when she became red in the face and then had a syncopal episode lasting about 15 seconds. This was associated with incontinence of urine. The patient continues to experience headache here in the emergency department. No chest pain, shortness of breath, vomiting, diarrhea, or other associated symptoms. REVIEW OF SYSTEMS: A comprehensive 10 system review of systems is otherwise negative aside from elements mentioned in the history of present illness and medical decision making. PMH: Hypertension. Hypothyroid. CHF. Osteoarthritis. Osteoporosis. Thyroidectomy. Hysterectomy. SOCIAL HISTORY: Family at bedside. . Does not abuse tobacco drugs, or alcohol. PHYSICAL EXAM: General:Patient is alert, in no acute distress. ENT:Eyes are normal to inspection. ENT inspection normal. Neck: Normal inspection. Full range of motion. Respiratory:No respiratory distress. Breath sounds normal bilaterally. Cardiovascular: Regular rate and rhythm. Strong peripheral pulses. Normal cap refill. Abdomen:The abdomen is nontender to palpation. There are no peritoneal signs. There are normal bowel sounds. Back: Normal to inspection. No tenderness to palpation. Skin: Normal color. No rash. Warm and dry. Extremities: Normal appearance. Full range of motion. Neuro: Oriented x3. Normal motor function. Normal sensory function. ED Course: 82 y/o female with history of hypertension presents following a syncopal episode at home. Plan EKG, for labs including CBC, chemistries, troponin. Plan for CT head to rule out acute abnormalities. EKG was ordered and interpreted by myself. Please see Verified Identity Pass system for official reading Laboratory studies are largely unremarkable. POC troponin negative at 0.02. 1840: CTH read as negative for acute abnormality per Dr. Ga. Reassessed patient. Discussed imaging and laboratory results. Plan to admit patient for syncope, labile hypertension. Patient describes allergies to lisinopril, amlodipine. Admission for careful management of the patient's antihypertensives is appropriate. The patient and her family are comfortable with this plan. Completed and reviewed x-ray of cervical spine. C-spine x-ray is negative for acute fracture. 19:20 Spoke with hospitalist service. Dr. Elmore accepts admission for syncope , hypertension. - Data Points Imaging: Discussed imaging studies w/ call center agent Radiologist, I viewed and interpreted images myself Laboratory Results: Laboratory Results 03/03/18 05:00 03/03/18 05:00 Medications Given: Acetaminophen (Tylenol) 650 mg PO Q4HRS PRN PRN Reason: Pain, Mild/Fever, Can Take PO Stop: 08/29/18 20:19 Last Admin: 03/03/18 23:14 Dose: 650 mg Amlodipine Besylate (Norvasc) 10 mg PO DAILY MARY Stop: 08/30/18 13:29 Last Admin: 03/04/18 09:34 Dose: 10 mg Aspirin Buffered (Aspirin Ec) 81 mg PO HS MARY Stop: 08/29/18 20:59 Last Admin: 03/03/18 21:08 Dose: 81 mg Enoxaparin Sodium (Lovenox) 40 mg SC DAILY MARY Stop: 08/30/18 08:59 Last Admin: 03/04/18 09:35 Dose: 40 mg Gabapentin (Neurontin) 300 mg PO HS MARY Stop: 08/30/18 20:59 Last Admin: 03/03/18 21:08 Dose: 300 mg Guanfacine HCl (Guanfacine Hcl) 2 mg PO HS MARY Stop: 08/29/18 20:59 Last Admin: 03/03/18 23:14 Dose: 2 mg Ibuprofen (Motrin) 400 mg PO TID PRN PRN Reason: Headache Stop: 08/29/18 20:08 Last Admin: 03/03/18 21:09 Dose: 400 mg Isosorbide Mononitrate (Imdur) 60 mg PO HS MARY Stop: 08/29/18 20:59 Last Admin: 03/03/18 21:10 Dose: 60 mg Levothyroxine Sodium (Synthroid) 88 mcg PO DAILY06 MARY Stop: 08/30/18 05:59 Last Admin: 03/04/18 09:34 Dose: 88 mcg Losartan Potassium (Cozaar) 50 mg PO BID [facility] Stop: 08/29/18 20:59 Last Admin: 03/04/18 09:34 Dose: 50 mg Nortriptyline HCl (Pamelor) 25 mg PO BID [facility] Stop: 08/29/18 20:59 Last Admin: 03/04/18 09:34 Dose: 25 mg Raloxifene HCl (Evista) 60 mg PO DAILY [facility] Stop: 08/30/18 08:59 Last Admin: 03/04/18 09:34 Dose: 60 mg Spironolactone (Aldactone) 25 mg PO DAILY [facility] Stop: 08/30/18 10:29 Last Admin: 03/04/18 09:34 Dose: 25 mg Tramadol HCl (Ultram) 50 mg PO Q6HRS PRN PRN Reason: Pain, Moderate Able to Take PO Stop: 08/29/18 20:09 Last Admin: 03/03/18 08:31 Dose: 50 mg Zolpidem Tartrate (Ambien) 5 mg PO HS [facility] Stop: 08/29/18 20:59 Last Admin: 03/03/18 23:13 Dose: 5 mg Discontinued Medications Furosemide (Lasix) 20 mg PO ONCE ONE Stop: 03/02/18 20:11 Last Admin: 03/02/18 21:33 Dose: Not Given Hydralazine HCl (Apresoline) 75 mg PO TID PRN PRN Reason: sbp >160 Stop: 08/29/18 20:08 Last Admin: 03/02/18 20:40 Dose: 75 mg Sodium Chloride (Ns) 500 mls @ 0 mls/hr IV EDNOW ONE; Wide Open PRN Reason: Protocol Stop: 03/02/18 18:11 Last Admin: 03/02/18 18:38 Dose: 500 mls Tramadol HCl (Ultram) 50 mg PO ONCE ONE Stop: 03/02/18 20:11 Last Admin: 03/02/18 20:39 Dose: 50 mg Point of Care Test Results: Chemistry 03/02/18 18:43 POC Troponin I 0.02 ng/mL ng/mL (0.00-0.08) General Time Seen by Provider: 03/02/18 17:53 Initial Vital Signs: Initial Vital Signs Temperature (C) 36.6 C 03/02/18 17:53 Heart Rate 80 03/02/18 17:53 Respiratory Rate 16 03/02/18 17:53 Blood Pressure 184/78 H 03/02/18 17:53 O2 Sat (%) 93 03/02/18 17:53 O2 Delivery Mode Room Air O2 (L/minute) 2 Allergies/Adverse Reactions: amlodipine [From Norvasc] Allergy (Severe, Verified 02/18/18 21:16) Unknown estradiol Allergy (Severe, Verified 02/18/18 21:16) Unknown lisinopril Allergy (Severe, Verified 02/18/18 21:17) Unknown codiene Allergy (Intermediate, Uncoded 01/14/18 23:54) Vomiting Home Medications: Medication Instructions Recorded Aspirin EC [Aspirin EC 81 mg (*)] 81 mg PO HS 02/18/18 Calcium Carb W/Vit D [Calcium Carb 500 mg PO BIDMEAL 02/18/18 W/Vit D 500/200 (*)] Cyanocobalamin (Vitamin B-12) 2,500 mcg SL DAILY 02/18/18 [Vitamin B-12] Levothyroxine [Synthroid 88 mcg 88 mcg PO DAILY06 02/18/18 (*)] Losartan Potassium [Cozaar 50 mg 50 mg PO BID 02/18/18 (*)] Multivitamins [Multivitamin (*)] 1 each PO DAILY 02/18/18 Nortriptyline HCl [Pamelor 25 mg 25 mg PO BID 02/18/18 (*)] Raloxifene HCl [Evista] 60 mg PO DAILY 02/18/18 Zolpidem Tartrate [Ambien 5MG (*)] 5 mg PO HS 02/18/18 guanFACINE HCL [Guanfacine HCl 1 2 mg PO HS 02/18/18 MG (*)] Ibuprofen [Motrin (*)] 400 mg PO TID PRN 03/02/18 Isosorbide Mononitrate [Isosorbide 60 mg PO HS 03/02/18 Mononitrate ER] Labetalol HCl [Trandate 200 mg (*)] 400 mg PO BID 03/02/18 hydrALAZINE [Apresoline] 75 mg PO TID PRN 03/02/18 Departure - Departure Disposition: [facility] Acute Clinical Impression: Hypertension Qualifiers: Hypertension type: essential hypertension Qualified Code(s): I10 - Essential ( primary) hypertension Syncope Qualifiers: Syncope type: unspecified Qualified Code(s): R55 - Syncope and collapse Condition: Fair Report Scribed for: Adrien Pinon Report Scribed by: Kristen Logan Date of Report: 03/02/18 Time of Report: 18:02 Physician Review and Approval Statement: Portions of this note were transcribed by an ED scribe. I personally performed the history, physical exam, and medical decision making; and confirm the accuracy of the information in the transcribed note.
[2018-03-02] MEDS ORDERED: NS 500 ML IV ONE (18:10)
[2018-03-02 19:06] LABS: PLATELET COUNT 335 10^3/uL (150-400)
[2018-03-02] MEDS ORDERED: hydrALAZINE 25 MG TAB PO PRN ×2 (20:09→23:05)
[2018-03-02] MEDS ORDERED: FUROSEMIDE 20 MG TAB PO ONE (20:10)
[2018-03-02] MEDS ORDERED: traMADol 50 MG TAB PO ONE (20:10)
[2018-03-02] MEDS ORDERED: amLODIPine BESYLATE 5 MG TAB ONE (20:19)
[2018-03-02] MEDS ORDERED: ONDANSETRON 4 MG/2 ML VIAL IVP PRN (20:20)
[2018-03-02] MEDS ORDERED: ONDANSETRON DISINTEGRATING 4 MG TAB PO PRN (20:20)
[2018-03-02] MEDS: LOSARTAN POTASSIUM 50 MG TAB PO SCH (20:39)
--- NOTE | 2018-03-02 21:21 | GHP ---
DATE OF ADMISSION: 03/02/2018 CHIEF COMPLAINT: Syncope. HISTORY OF PRESENT ILLNESS: This is an 82-year-old female with a very complicated recent history of hypertension who presents with syncope. She presented today as she was at her daughter's house. She was sitting in the chair, complaining of a headache (which has been present for months). She then lost consciousness, slowly slumped to the floor, had urinary incontinence. Her daughter describes that she was out for about 15-20 seconds. There was no seizure activity. She then regained consciousness and continued to complain about her headache. Her hypertensive history is complicated. She has had longstanding hypertension. She was initially taken off labetalol in 2016 when she was found to be in complete heart block. This has subsequently been restarted. She was also admitted here recently for hypertension. At that point, she was on spironolactone as well as hydrochlorothiazide. These were stopped for hyperkalemia and hyponatremia, respectively. She was discharged with outpatient followup, having been restarted on labetalol. She was also on isosorbide mononitrate, losartan, hydralazine. As an outpatient, her hydralazine was increased to 100 t.i.d., which seemed to worsen her headache and was then reduced. Two days ago, she had her labetalol increased from 200 mg p.o. b.i.d. to 400 mg p.o. b.i.d. She has had a negative workup for pheochromocytoma as well as reportedly for renin-aldosterone abnormalities. She had been on Norvasc (which reportedly controlled her BP very well) which was stopped due to lower extremity edema and was added to her allergy list then , although it is not a true allergy. PAST MEDICAL/SURGICAL HISTORY: 1. Hypertension. 2. Hypothyroid. 3. Back pain. 4. Diastolic CHF. 5. Osteoarthritis. 6. Osteoporosis. 7. Goiter, status post thyroidectomy. 8. Hysterectomy. MEDICATIONS: Please see medication reconciliation. ALLERGIES: Amlodipine, estradiol, lisinopril, and codeine. FAMILY HISTORY: Reviewed; noncontributory. SOCIAL HISTORY: She is . Her daughter is present. REVIEW OF SYSTEMS: A 10-point review of systems is conducted and is negative except per HPI PHYSICAL EXAM: VITAL SIGNS: Blood pressure 210/78, heart rate 85, respiration rate 18, saturating 93% on room air, temperature 36.8. GENERAL: The patient is a pleasant female who appears somewhat uncomfortable. HEENT: Normocephalic , atraumatic. CARDIOVASCULAR: Regular rate and rhythm. No murmurs, rubs, or gallops. PULMONARY: Lungs clear to auscultation bilaterally. ABDOMEN: Soft, nontender, nondistended. SKIN: No rash. : No [place]. NEUROLOGIC: Alert and oriented x3. She has a nonfocal neurologic exam. PSYCHIATRIC: Normal mood and affect. LABS: Sodium 132, bicarb 20, creatinine is 0.9. Troponin is negative. CBC shows a hemoglobin 11.3, otherwise unremarkable. DATA: 1. C-spine x-ray is negative for any acute fracture. 2. Head CT scan shows nothing acute. 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 3. EKG, which I personally viewed and interpreted, shows anteroseptal Q-waves, no ischemic changes. IMPRESSION AND PLAN: 1. Syncope: Concerning that she previously had complete heart block on labetalol and had just recently had her labetalol increased. We will monitor her on telemetry for any ongoing arrhythmias. Will also order an echocardiogram. Her CT scan of her head was negative for anything acute. 2. Hypertension: Very complicated recent history. Would recommend at least informally discussing with Cardiology tomorrow to make sure that everybody is on the same page who is managing this. I would not recommend labetalol at this point, given her history. Aldactone and hydrochlorothiazide have been recently held due to electrolyte abnormalities. I think it is reasonable to restart her on amlodipine, which she reports she had good control on. Her allergy is edema. For now, I will continue her losartan, hydralazine, Imdur, and restart start her on a low dose of amlodipine. 3. Headache: Certainly may be driven by her high blood pressure, as well as fluctuations. I have given her 1 dose of tramadol to try to control this. Would follow this closely. Luckily, her CT head was negative. 4. Venous thromboembolism risk is moderate. I will give her low-dose Lovenox. 5. Code status will be FULL. /[id number]/MODL MTDD
[2018-03-02] MEDS: ASPIRIN EC 81 MG TAB PO SCH (21:37)
[2018-03-02] MEDS: NORTRIPTYLINE HCL 25 MG CAP PO SCH (21:37)
[2018-03-02] MEDS: ISOSORBIDE MONONITRATE 30 MG TAB.SR PO SCH (21:37)
[2018-03-02] MEDS: guanFACINE HCL 1 MG TAB PO SCH (21:37)
[2018-03-02] MEDS: IBUPROFEN 200 MG TAB PO PRN (22:41)
[2018-03-02] MEDS: ACETAMINOPHEN 325 MG TAB PO PRN (23:54)
[2018-03-02] MEDS: traMADol 50 MG TAB PO PRN (23:54)
[2018-03-02] MEDS: ZOLPIDEM TARTRATE 5 MG TAB PO SCH (23:54)
[2018-03-03 05:15] LABS: PLATELET COUNT 293 10^3/uL (150-400)
[2018-03-03] MEDS: LEVOTHYROXINE 88 MCG TAB PO SCH (08:10)
[2018-03-03] MEDS: IBUPROFEN 200 MG TAB PO PRN ×3 (08:30→21:09)
[2018-03-03] MEDS: traMADol 50 MG TAB PO PRN (08:31)
--- NOTE | 2018-03-03 11:04 | GCON ---
CARDIOLOGY CONSULTATION DATE OF CONSULTATION: 03/03/2018 CHIEF COMPLAINT: Hypertension. HPI: This is an 82-year-old female, who has a long history of hypertension. She has been on medicin e for many years. She initially was very well controlled with Norvasc. She had a stated allergy in her reconciliation, however, confirmed by the family, it was just a peripheral swelling. No urticari a or hive type allergy. She was given Norvasc last night without side effects. They actually would like her to be continued on that drug as it worked for her blood pressure so well in the past. For t he last 4 years or so, she has been having significant right shoulder, arm, and neck pain, possibly d ue to rotator cuff issues, which she declined surgery in the past. She has been having quite a bit o f uncontrolled hypertension with various medicines given to her. However, last night with Tylenol an d tramadol, she slept well and had normal blood pressure. Her blood pressure seems to be very influe nced by her pain. She had an episode yesterday which brought her to the hospital of a "syncope." It appeared to be more of a pain in her shoulder with headache and some slumping in her chair. She rem ained breathing and apparently was listening to her daughter speak to her last night. On the monitor , she had some sinus pauses, possibly some sinus node dysfunction. She had just been on 400 mg twice daily of labetalol as an outpatient, however, was stopped yesterday. At this point, reviewing her eds, she has been on many medications with varying side effects. At this point, what I would like to do is just simplify her medications and get her back on a stable regimen while she is in the [facility] with some pain control and possibly getting an orthopedic consult as well. The family and she have agreed that they should probably look into her musculoskeletal or possible neck causes for her shoul celio pain, which seem to be significantly exacerbating her hypertension. At this point, we will give her amlodipine 10 mg p.o. daily, spironolactone 25 mg p.o. daily, losartan 50 mg p.o. twice daily. S he has isosorbide mononitrate to use as well. She will have p.r.n. hydralazine. We will continue to follow her rhythm. At this point, no indication for pacemaker is needed. Many questions were answe red. She denies any ongoing exertional chest pain, palpitations, or peripheral edema. PAST MEDICAL HISTORY: Hypertension, hypothyroidism, back pain, possible rotator cuff issues. MEDICATIONS: See reconciliation form. ALLERGIES: Lisinopril, codeine, estradiol, and stated amlodipine, but this was confirmed by family t o be a swelling, not an urticarial or respiratory issue. SOCIAL HISTORY: She is . Her family is here and with her. REVIEW OF SYSTEMS: Negative, except for the HPI. EXAM: VITALS: On exam, her blood pressure was 150/70 when I was examining her. Her heart rate was in the 70s and regular. GENERAL: She appeared to be alert and oriented, and was answering questions appropriately through her family. HEENT: Her mouth and oropharynx were clear. She had a heating p ad on her right shoulder. LUNGS: Clear. CARDIOVASCULAR: Regular rate and rhythm. I could not hea r murmurs, gallops, rubs. ABDOMEN: Soft, nontender. MUSCULOSKELETAL: Shows no signs of clubbing o r edema. Pulses were strong in the pedal and radial areas. LABS: White count 7, hemoglobin of 10, potassium 4.3, sodium 133. Her creatinine is 0.8. ASSESSMENT: Hypertension. Patient has probable baseline essential hypertension with significant victor manuel vations due to chronic ongoing right shoulder pain. She has been on many medicines including labetal ol, which may have been contributing to her bradycardia. Her "syncope" last night is hard to ascerta in whether it was true syncope or just part of the pain headache complex, which she has had in the [facility]. At this point, we will try to simplify her medical regimen for hypertension as ordered and magdalena nue to follow. There is no indication for a pacemaker at this time. Pain relief will be given by [facility] service. Consideration for orthopedic consult and reimaging of her shoulder can be made w ith them as well. Many questions were answered, and the family agrees as does the patient of this cu rrent plan. We will continue to follow her in the hospitalization for the next few days to help sort out further issues if they arise. /[id number]/MODL
--- NOTE | 2018-03-03 11:05 | ECHO ---
[email or web address] [address] [address] Main: [phone] Fax: Transthoracic Echocardiogram Name: THEO DUBON MR#: [id number] Study Date: 03/03/2018 Study Time: 10:05 AM Date of : 1935 Age: 82 year(s) Height: 144.8 cm (57 in.) Weight: 55.79 kg (123 lb.) BSA: 1.46 m2 Gender: Female Examination: Echo Indication: Cardiac: syncope Image Quality: Adequate Contrast: Requested by: Killian Elmore BP: 156 mmHg/61 mmHg Heart Rate: Rhythm: Indication: Cardiac: syncope Procedure Staff Acls Nurse: Amber Andrade RDCS Reading Physician: Malika Santos MD Requesting Provider: Conclusions: Normal size left ventricle. Moderate concentric LV hypertrophy. Normal global systolic LV function. EF is 61 %. No regional wall motion abnormality. Grade 2 diastolic dysfunction (pseudonormalized LV filling pattern). Normal size right ventricle. Normal RV function. The left atrium is mildly dilated. Mild mitral valve regurgitation is present. No aortic valve stenosis is present. Moderate to severe aortic regurgitation. Mild tricuspid regurgitation is present. Right ventricular systolic pressure measures 42mmHg. Compared with 01/05/2016 AR has progressed Measurements: Chambers Valvular Assessment AV/MV Valvular Assessment TV/PV Normal Normal Normal Name Value Range Name Value Range Name Value Range Ao Rubi (2D): 2.3 cm (1.4 cm-2.6 AV Vmax: 1.72 m/s (1 m/s-1.7 TR Vmax: 3.05 mm/s ( - ) cm) m/s) TR PGmax: 37 mmHg ( - ) IVSd (2D): 1.5 cm (0.6 cm-1.1 AV maxP mmHg ( - ) syst. PAP: 42 mmHg ( - ) cm) AV meanP mmHg ( - ) PV Vmax: 0.99 m/s (0.6 m/s-0.9 LVDd (2D): 3.6 cm (3.9 cm-5.3 ANJALI (VTI): 1.3 cm ( - ) m/s) cm) AR (PHT): 269 ms ( - ) PV PGmax: 4 mmHg ( - ) LVDs (2D): 2.2 cm (2.1 cm-4 MV E Vmax: 0.96 m/s ( - ) cm) MV A Vmax: 0.89 m/s ( - ) LVPWd (2D): 1.3 cm ( - ) MV E/A: 1.08 ( - ) LVOTd 1.7 cm 1.7 cm mm MV PHT: 0.067 s ( - ) Patient: THEO DUBON Study Date: 03/03/2018 Page 1 of 2 10:05 AM LVEF (BP): 61 % (>=55 %) MVA (PHT): 3.3 s ( - ) RVDd(2D): 2.7 cm (1.9 cm-3.8 cmmm) Continued Measurements: Chambers Valvular Assessment AV/MV Valvular Assessment TV/PV Name Value Name Value Name Value LADs: 3.6 cm MV DecTime: 222 m/s CVP (est.): 5 mmHg LADs Lon.4 cm MV E' Septal: 0.06 m/s LA Area: 19.7 cm2 MV E/E' Septal: 16.50 LA Volume: 56 ml MV E/E' Lateral: 17.00 LA Volume Index: 38.4 ml/m2 AR Vmax: 3.65 cm/s RA Area: 12.2 cm2 Additional Vessels Name Value Ao Ascendin.6 cm Inferior Vena Cava: 1.2 cm Findings: Left Ventricle: Normal size left ventricle. Moderate concentric LV hypertrophy. Normal global systolic LV function. EF is 61 %. No regional wall motion abnormality. Grade 2 diastolic dysfunction (pseudonormalized LV filling pattern). Right Ventricle: Normal size right ventricle. Normal RV function. Left Atrium: The left atrium is mildly dilated. Right Atrium: The right atrium is normal in size. Mitral Valve: The mitral valve is normal in appearance and function. Mild mitral valve leaflet calcification is present. Mild mitral valve regurgitation is present. No mitral stenosis is present. Aortic Valve: The aortic valve is tri-leaflet. No aortic valve stenosis is present. Moderate to severe aortic regurgitation. Tricuspid Valve: The tricuspid valve is normal in appearance and function. Mild tricuspid regurgitation is present. The pulmonary artery pressure is mildly increased. Right ventricular systolic pressure measures 42mmHg. Pulmonic Valve: The pulmonic valve is normal in appearance and function. There is no pulmonic regurgitation seen. Aorta: The aorta is normal. Normal size aortic root measuring 2.3 cm. Normal size ascending aorta measuring 2.6 cm. IVC: The IVC is normal sized. Pericardium: No pericardial effusion. No pleural effusion. (No Signature Object) Patient: THEO DUBON Study Date: 03/03/2018 Page 2 of 2 10:05 AM [id number]
--- NOTE | 2018-03-03 11:17 | ASMTCMCOM ---
CM Note CM Note Notes: Patient admitted after syncopal episode. She has a complicated history of intractable HTN. Cardiology has been consulted. I spoke with patiet's daughter Afsoon. She requested information on help at home since patient's is also elderly. I explained difference between skilled and unskilled home care. I gave a list of private duty agencies. I sent a referral to [facility] to RN/PT/OT. Case Management will follow. Date Signed: 03/03/2018 11:16 AM Electronically Signed By:Marylin Deutsch RN
[2018-03-03] MEDS: RALOXIFENE HCL 60 MG TAB PO SCH (11:40)
[2018-03-03] MEDS: SPIRONOLACTONE 25 MG TAB PO SCH (11:41)
[2018-03-03] MEDS: ENOXAPARIN 40 MG/0.4 ML SYR SC SCH (11:41)
[2018-03-03] MEDS: LOSARTAN POTASSIUM 50 MG TAB PO SCH ×2 (11:41→21:08)
[2018-03-03] MEDS: NORTRIPTYLINE HCL 25 MG CAP PO SCH ×2 (12:45→21:08)
--- NOTE | 2018-03-03 16:50 | HOSPPROG ---
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 These last 20 or 30 min to an hour or 2 or longer. 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 last imaged in 2016 by MRI here * intermittent sinus pauses and bradycardia / brief syncope yesterday uncertain if it was related to bradyarrhythmia here likely caused by her high-dose labetalol; previous complete heart block and sinus bradycardia caused by beta-blockers she has used in the past * new onset of normocytic anemia uncertain etiology -slightly worse today * 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 Dewitt today. No indication for pacer at this time but if she probably should not be on beta-blockers or at least on much lower doses; Dr. Dewitt has made changes to medication regimen and will follow blood pressures closely * Neurosurgery evaluation to reassess her aneurysm, likely needs reimaging to see if it has progressed in size; very high risk with her ongoing uncontrolled hypertension * Continue cardiac monitoring * Will clearly need ongoing outpatient follow-up for each of these issues * DVT prophylaxis * Recheck hemoglobin tomorrow, watch for any bleeding or other signs of a cause of her anemia * requires ongoing ekg monitor tech, further imaging and consultations, will need to change to inpatient Greater than 1 hr spent at the bedside by me today Seen by me on hospitalist rounds and multidisciplinary rounds I reviewed today in detail with Dr. Hussein Rudolph and Dr. Shaka Li SUBJECTIVE: Patient still feels fairly poorly, has not had any recurrences of syncope here Her headaches are fairly concerning. She has mild headache at this moment. However she is describing 3-4 times per week severe headaches that typically occur in the afternoon or early evening. They start with severe pain at her left upper shoulder left neck area and the pain spreads to the occiput put in and around the entire cranium at which time she starts to feel severe tingling and prickling sensation on both sides of her face. There are no other neurologic symptoms. She takes Tylenol and/or ibuprofen for these with some partial relief but not adequate relief. These last 20-30 minutes to a few hours. Notably she has had past times over the last few years where she has had similar headaches with frequency. She has never seen a neurologist or headache specialist to assess these and has not really tried any other treatments for them. Notably she has had quite a bit of brain imaging and as I review her MRI scans here she has been noted to have a left carotid aneurysm internal at the bifurcation at the [place] of [place], last measured at 5 to 6 mm in 2016 In addition the patient notes that her blood pressure seems to fluctuate with her headaches. She is not sure whether they think the headache or the blood pressure proceed to the other. She does have ongoing lumbar back pain without radicular symptoms, has MRIs showing quite a bit of degenerative change there and I have reviewed those studies most recently in January of this year. She also has chronic cervical neck pain and has had cervical MRIs and again has quite a bit of degenerative change there and I reviewed her MRIs of the neck. She does not have radicular symptoms from her cervical spine. There is also some chronic left shoulder pain and she does have rotator cuff damage there and has had MRI of that. The patient was concerned that the pain in her left shoulder from the rotator cuff was triggering her headaches but as she describes her syndrome this does not seem tenable to me. She denies palpitations, chest pain or angina, shortness of breath. There is no fever and no nausea and there are no visual changes. OBJECTIVE Vitals reviewed: Blood pressures are better than last night but still remain in the mild to moderate systolic hypertension range. Pulses regular at the bedside and has been measured in the normal range by the nurses so far, no fever no respiratory changes Site Medical Director, my review: Sinus rhythm, with some periods of sinus bradycardia and sinus pauses that are quite significant. These are abrupt in onset and termination Exam: alert oriented but looks moderately uncomfortable due to headache pain and low back pain skin warm dry color ok resps not labored lungs clear BSs heart regular abd soft nondistended nontender, bowel sounds present limbs warm, no edema Cranial nerve exam, motor exam, speech language function, mentation are normal. The patient's exam of the left upper extremity is somewhat limited by her chronic rotator cuff issues but no neurologic issues are identified iv site ok Laboratory data at this time: Troponins unremarkable Sodium stable Renal function stable CBC stable with mild anemia Objective: Vital Signs Temp Pulse Resp BP Pulse Ox 36.8 C 86 18 157/53 H 93 03/03/18 16:00 03/03/18 16:00 03/03/18 16:00 03/03/18 16:00 03/03/18 16:00 Laboratory Results 03/03/18 05:00 03/03/18 05:00 03/02/18 03/03/18 03/04/18 06:59 06:59 06:59 Intake Total 950 320 Output Total 1200 600 Balance -250 -280 ICD10 Worksheet Patient Problems: Problems Problem Status Onset Hypertension Acute Syncope Acute History of - hypertension Active Muscle pain Active Bradycardia Acute Complete heart block Acute Hyperkalemia Acute Hyponatremia Acute Hypotension Acute
[2018-03-03] MEDS ORDERED: amLODIPine BESYLATE 5 MG TAB PO ONE (20:12)
[2018-03-03] MEDS: ASPIRIN EC 81 MG TAB PO SCH (21:08)
[2018-03-03] MEDS: GABAPENTIN 300 MG CAP PO SCH (21:08)
[2018-03-03] MEDS: ISOSORBIDE MONONITRATE 30 MG TAB.SR PO SCH (21:10)
[2018-03-03] MEDS: ZOLPIDEM TARTRATE 5 MG TAB PO SCH (23:13)
[2018-03-03] MEDS: guanFACINE HCL 1 MG TAB PO SCH (23:14)
[2018-03-03] MEDS: ACETAMINOPHEN 325 MG TAB PO PRN (23:14)
--- NOTE | 2018-03-04 08:02 | NEUROPROG ---
Assessment: agree with gabapentin and monitoring. full consult dictated Objective: Vital Signs Temp Pulse Resp BP Pulse Ox 36.6 C 80 18 139/58 H 93 03/04/18 04:00 03/04/18 04:00 03/04/18 04:00 03/04/18 04:00 03/04/18 04:00 Laboratory Results 03/03/18 05:00 03/03/18 05:00 03/03/18 03/04/18 03/05/18 05:59 05:59 05:59 Intake Total 950 1190 Output Total 1200 1750 Balance -250 -560 Allergies/Adverse Reactions: amlodipine [From Norvas] Allergy (Severe, Verified 02/18/18 21:16) Unknown estradiol Allergy (Severe, Verified 02/18/18 21:16) Unknown lisinopril Allergy (Severe, Verified 02/18/18 21:17) Unknown codiene Allergy (Intermediate, Uncoded 01/14/18 23:54) Vomiting
[2018-03-04] MEDS: RALOXIFENE HCL 60 MG TAB PO SCH (09:34)
[2018-03-04] MEDS: SPIRONOLACTONE 25 MG TAB PO SCH (09:34)
[2018-03-04] MEDS: LEVOTHYROXINE 88 MCG TAB PO SCH (09:34)
[2018-03-04] MEDS: LOSARTAN POTASSIUM 50 MG TAB PO SCH ×2 (09:34→20:32)
[2018-03-04] MEDS: NORTRIPTYLINE HCL 25 MG CAP PO SCH ×2 (09:34→20:30)
[2018-03-04] MEDS: ENOXAPARIN 40 MG/0.4 ML SYR SC SCH (09:35)
--- NOTE | 2018-03-04 09:57 | PDMN ---
Medical Necessity Medical necessity: Pt meets IP criteria as of 03/03/2018 per and JOHN M-[id number] ( Headache); los > 2 mn for ongoing tx and management of severe headache in the setting of uncontrolled HTN as well as cardiac arrhythmias (sinus pauses and bradycardia) and a 5-6 mm carotid aneurysm; requiring neurology consultation, pain control, med management and therapies.
--- NOTE | 2018-03-04 10:34 | CPEKG ---
Test Reason : OPEN Blood Pressure : / mmHG Vent. Rate : 083 BPM Atrial Rate : 083 BPM P-R Int : 233 ms QRS Dur : 106 ms QT Int : 400 ms P-R-T Axes : 045 -16 053 degrees QTc Int : 470 ms Sinus rhythm Prolonged WI interval Anterior infarct, old Confirmed by Adrien Pinon ([id number]) on 03/04/2018 10:34:27 AM Referred By: Confirmed By:Adrien Pinon
--- NOTE | 2018-03-04 11:44 | GCON ---
NEUROLOGIC CONSULTATION REFERRING PHYSICIAN: Willie Parada MD HISTORY: The patient was admitted to the hospital on March 02, 2 days ago, and she had come in af ter having an episode where she fainted for about 15 seconds. The description said that she had some headache and lightheadedness and has had some similar presentations in the past. In general, it has been very difficult to control blood pressure. The report was she had doubled labetalol in the last week. She had a head CT on admission that was unremarkable in terms of acute intracranial findings. 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 She is already taking 1 aspirin a day. Since admission to the hospitalist service by Dr. Elmore on the , there have b een more investigations and questions about headache. This has actually been present for some number of months. The patient tells me this morning that she perhaps has only a very mild headache. Attem pts were to give her some tramadol to see if that might help the headache and continue to focus on ma nagement of her blood pressure. The patient's additional past medical history is reviewed, and she h as hypothyroidism, back pain, diastolic heart failure, osteoarthritis, osteoporosis, goiter, and hyst erectomy. FAMILY HISTORY: Noncontributory. She was seen yesterday by Dr. Kranthi Parada. He also spoke to Dr. Hussein Rudolph about the case in general . Further history has elucidated that she will have these headaches 3 or 4 times a week, usually in the occipital region or neck region and spread bifrontally, with tingling and numbness in her face th at can last 20 or 30 minutes, or even a bit longer in terms of several hours. The estimate is every other day for at least a few months. CURRENT PHYSICAL EXAMINATION: VITAL SIGNS: Blood pressure is 139/58, temperature 36.6, pulse of 80, respirations 18. When she came to the hospital, her initial blood pressure was 184/78. She is well developed, in no acute distress, just waking up from sleep and is a little bit groggy, but able to c ommunicate fairly well with me. NECK: Supple, with no bruits or masses. CARDIAC: Regular rate and rhythm. No murmur. NEUROLOGIC: She is awake, but groggy, as noted above, having just awakened. P upils 2 mm and reactive. Extraocular movements intact. Normal facial sensation and strength. Palat e elevates symmetrically. Tongue protrudes midline. Hearing is preserved. Motor exam: Normal musc le bulk and tone, 5/5 strength. Sensation is preserved for temperature, light touch. No ataxic move ments in the upper extremities. Reflexes 1+. LABORATORY STUDIES: Unremarkable CBC, except for mild anemia. Unremarkable electrolytes. Echocardiogram performed yesterday: Ejection fraction of 61%. IMPRESSION: Total unit time of 55 minutes. The patient has a chronic headache syndrome of uncertain cause, with challenges related to blood pressure. Whether the headache can be attributed simply to blood pressure control or fluctuations is hard to say. It does not fit a particularly classic patter n of migraine, but the intensity and some other associated symptoms certainly put it more in the migr ainous category than simple tension headache. It is probably a secondary headache disorder rather th an a primary headache disorder, but again, this is a little uncertain. With differential considerati ons in mind, I do not believe she has an infectious process or primary inflammatory condition like va sculitis or encephalitis. I think we try to treat this fairly conservatively and maximize blood pres sure control but recognize any patterns we can attributable to her blood pressure. Furthermore, it m ight be reasonable to add some gabapentin, so I will start a low dose of that just for its relative s tabilization on central sensitization syndromes and headache, and see if that can lead to overall few er headaches. I will monitor her progress. Certainly, she can be followed as an outpatient as well to gradually work on this, but aggressive interventions do not seem appropriate right now. /[id number]/MODL
--- NOTE | 2018-03-04 12:45 | HOSPPROG ---
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; may be contributing to her hypertension -seen by Neurology today -trial of gabapentin as an initial approach * uncontrolled hypertension with fairly severe numbers here, and chronically poorly controlled hypertension -previous evaluations including renal artery studies, metanephrines, aldosterone, remain activity, cortisol studies etc have all been unrevealing -has been tried on numerous medication regimens but never really with any consistent control over the past 4 years -meds as of today: losartan, guanfacine, aldactone, amlodipine * 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 last imaged in 2016 by MRI here * intermittent sinus pauses and bradycardia / brief syncope yesterday uncertain if it was related to bradyarrhythmia here likely caused by her high-dose labetalol; previous complete heart block and sinus bradycardia caused by beta-blockers she has used in the past * new onset of normocytic anemia uncertain etiology -needs close follow, may need further diagnostic assessment * 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 Min of Neurology. Headache etiology remains uncertain. Question of migraine variant or some other secondary type of headache. Dr. Min agrees with trial of gabapentin which was started last night. PLANS: * MR angiogram of the brain is ordered and pending for today for reassessment of her known aneurysm, will review this with Neurosurgery team 1 done * Continue trial of gabapentin for headaches * Could continue off all beta-blockers including labetalol due to sinus pauses and arrest; continue losartan and Norvasc; due to previous history of hyperkalemia will stop Aldactone and replace with Lasix * Discontinue ibuprofen in case that is inhibiting the effects of losartan * Continue cardiac monitoring * Will clearly need ongoing outpatient follow-up for each of her ongoing issues * DVT prophylaxis * Recheck hemoglobin tomorrow, watch for any bleeding or other signs of a cause of her anemia Seen by me on hospitalist rounds and multidisciplinary rounds I reviewed today in detail with Yakelin ARREOLA, SUBJECTIVE: Did sleep from midnight until 5 when we awakened her for vital sign check Did have some headache last night and some hypertension to 170 systolic OBJECTIVE Vitals reviewed: Blood pressures overall better so far today after being high last evening. The high again was associated with headache temporarily. Pulse is now in good range, respirations normal, no fever Quality Tester, my review: Sinus rhythm, no more sinus pauses since yesterday morning Exam: alert more awake and appears somewhat more comfortable today, oriented talkative skin warm dry color ok resps not labored lungs clear BSs heart regular abd soft nondistended nontender, bowel sounds present limbs warm, no edema iv site ok Objective: Vital Signs Temp Pulse Resp BP Pulse Ox 36.7 C 86 15 128/62 H 92 03/04/18 11:41 03/04/18 11:41 03/04/18 11:41 03/04/18 11:41 03/04/18 11:41 03/03/18 03/04/18 03/05/18 06:59 06:59 06:59 Intake Total 420 Output Total 600 300 Balance -180 -300 ICD10 Worksheet Patient Problems: Problems Problem Status Onset Hypertension Acute Syncope Acute History of - hypertension Active Muscle pain Active Bradycardia Acute Complete heart block Acute Hyperkalemia Acute Hyponatremia Acute Hypotension Acute
--- NOTE | 2018-03-04 14:27 | PDCARPN ---
Cardiology Progress Note Chief Complaint: malignant htn/syncope Assessment/Plan: Assessment: 82-y/o F h/o resistant htn, mitral valve disorder, prediabetes, recent hospitalization from 02/18- for htn with SBP 240. She was hyperkalemic and hyponatremic in that admission. Therefore her HCTZ and Spironolactone were stopped and she was started on Labetalol though she had heart block on this agent in the past. Her Labetalol and Hydralazine were uptitrated. She presented on 03/02 with syncope from seated position. Telemetry showed some sinus exit block. Her Labetalol was discontinued. She has been started on Amlodipine with Lasix. Amlodipine is listed as an allergy due to edema. BP control now improved. #. malignant htn: improved and appears controlled on current regimen HEATHER ruled out by previous ultrasounds secondary workup with urine catecholamines, renin, angiotensin, and aldosterone were all normal; however, testing was done while still on BB and ARB which renders the testing uninterpretable. improved now on Amlodipine, Guanfacine, Imdur, Losartan, Lasix #. hyponatremia: improved will have her stay off HCTZ #. headaches: will be having repeat head imagining we discussed avoiding NSAIDs due to her htn #. mod-severe AR: new problem and worsened from echo 12/04 Plan: - continue current BP regimen 03/04/18 14:16 Subjective: Notes L sided DORSEY, neck and shoulder pain. No edema. No dyspnea, pnd/orthopnea. Reviewed/Discussed With: hospitalist (Dr. Parada) Objective: Vital Signs (8 Hrs) Temp Pulse Resp BP Pulse Ox 03/04/18 11:41 98.0 F 86 15 128/62 H 92 03/04/18 08:00 97.8 F 74 16 137/61 H 95 Intake/Output (24 Hrs) 03/03/18 03/04/18 03/05/18 05:59 05:59 05:59 Intake Total 420 Output Total 600 300 Balance -180 -300 Intake: Oral (ml) 420 Output: Urine (ml) 600 300 Toilet 600 300 Other: Number of Voids Toilet 2 Number of Stools Toilet 1 Result Diagrams: 03/03/18 05:00 03/03/18 05:00 EKG: SR Echocardiogram: reviewed - Physical Exam Constitutional: no apparent distress Eyes: anicteric sclera Cardiovascular: regular rate and rhythm, no murmurs Respiratory: clear to auscultate bilat Gastrointestinal: normoactive bowel sounds Neurologic: AAOx3 Psychiatric: cooperative, interactive ICD10 Worksheet Patient Problems: Problems Problem Status Onset Hypertension Acute Syncope Acute History of - hypertension Active Muscle pain Active Bradycardia Acute Complete heart block Acute Hyperkalemia Acute Hyponatremia Acute Hypotension Acute
[2018-03-04] MEDS: guanFACINE HCL 1 MG TAB PO SCH (20:31)
[2018-03-04] MEDS: GABAPENTIN 300 MG CAP PO SCH (20:32)
[2018-03-04] MEDS: ISOSORBIDE MONONITRATE 30 MG TAB.SR PO SCH (20:33)
[2018-03-04] MEDS: ASPIRIN EC 81 MG TAB PO SCH (20:34)
[2018-03-04] MEDS: ACETAMINOPHEN 325 MG TAB PO PRN (23:07)
[2018-03-04] MEDS: ZOLPIDEM TARTRATE 5 MG TAB PO SCH (23:07)
[2018-03-05 04:34] LABS: PLATELET COUNT 327 10^3/uL (150-400)
--- NOTE | 2018-03-05 08:45 | NEUROPROG ---
Assessment: total unit time 15 minutes. She has idiopathic DORSEY. I discussed with Dr. Parada, and we are considering medication effects and continuing gabapentin. I spoke with family last pm as well to share my thoughts. Subjective: She reports no particular changes. Headache about 05/26. Objective: Vital Signs Temp Pulse Resp BP Pulse Ox 36.7 C 74 14 139/60 H 94 03/05/18 07:13 03/05/18 07:13 03/05/18 07:13 03/05/18 07:13 03/05/18 07:13 Laboratory Results 03/05/18 03:18 03/04/18 03/05/18 03/06/18 05:59 05:59 05:59 Intake Total 420 1040 Output Total 600 800 Balance -180 240 Other than feeling a little uncomfortable, exam is normal. Allergies/Adverse Reactions: amlodipine [From Norvasc] Allergy (Severe, Verified 02/18/18 21:16) Unknown estradiol Allergy (Severe, Verified 02/18/18 21:16) Unknown lisinopril Allergy (Severe, Verified 02/18/18 21:17) Unknown codiene Allergy (Intermediate, Uncoded 01/14/18 23:54) Vomiting
--- NOTE | 2018-03-05 08:50 | GCON ---
NEUROSURGERY CONSULT NOTE DATE OF CONSULTATION: 03/04/2018 Patient was seen and evaluated at approximately 2 p.m. on the general care floor at [facility]. HISTORY OF PRESENT ILLNESS: The patient is an 82-year-old woman with a complicated history of hypert ension. She has a known left carotid bifurcation aneurysm measuring 5 x 5 mm. This was last admissi on in 2015. Due to her very [id number] hypertension, we were consulted regarding the possi ble management of her aneurysm. Until this time, it has been untreated given her age. She has had s ome recent headaches as well, but these are thought to possibly be due to the hypertension versus the medications for hypertension treatment. She has never had a thunderclap headache. REVIEW OF SYSTEMS: A 10-point review of systems is negative, other than that described above in HPI. PAST MEDICAL HISTORY: 1. Hypertension. 2. Hypothyroidism. 3. Back pain. 4. Congestive heart failure. 5. Osteoarthritis. 6. Osteoporosis. 7. Goiter. 8. Hysterectomy. ALLERGIES: 1. Amlodipine. 2. Estradiol. 3. Lisinopril. 4. Codeine. MEDICATIONS: All of her medications were reviewed within the electronic medical record and I have no additions at this time. FAMILY HISTORY: Negative for aneurysms or vascular malformations. SOCIAL HISTORY: Patient is . Her son and are present. She denies any tobacco, alcoh ol, or other drug use. PHYSICAL EXAM: VITAL SIGNS: Currently, she is afebrile and her vital signs appear normal and stable . NEUROLOGIC: She is awake, alert, and oriented x3. Her speech is clear and fluent. Her cranial n erves 2-12 are grossly normal. Her strength is full in all extremities. Sensation is normal. Deep tendon reflexes are normal. IMAGING REVIEW: The patient had a MRA done today, which in comparison with the MRA of 2016, is stabl e. There is a 5.5 mm superiorly projecting left ICA bifurcation aneurysm, which appears unchanged fr om previous angiography. There are no other aneurysms or abnormalities visualized. ASSESSMENT/PLAN: The patient is an 82-year-old woman with an unruptured 5 x 5 mm internal carotid ar christopher bifurcation aneurysm. This appears stable from 2016. I did discuss with her and her family a l ittle bit the treatment options, which would include both surgical clipping and endovascular coil emb olization. Given her age, I would certainly favor endovascular coil embolization if we were to under take any treatment at all. The risk of rupture for an anterior circulation aneurysm less than 7 mm i s generally thought to be far less than 1% per year, so given her age, could certainly consider no tr eatment; however, given the fact that she has uncontrolled hypertension and this may be a somewhat so ft risk factor indication for treatment of the aneurysm, we could certainly consider proceeding. Ple ase have the patient follow up in my clinic after her discharge from the hospital and we can further discuss the options for aneurysm treatment and the risks and benefits thereof. Certainly, if we can be of assistance while she is still in the hospital, please let us know. Thanks for the kind consultation. Sincerely, /[id number]/BRUCE
[2018-03-05] MEDS: LEVOTHYROXINE 88 MCG TAB PO SCH (08:53)
[2018-03-05] MEDS: RALOXIFENE HCL 60 MG TAB PO SCH (10:24)
[2018-03-05] MEDS: FUROSEMIDE 20 MG TAB PO SCH (10:25)
[2018-03-05] MEDS: ACETAMINOPHEN 325 MG TAB PO PRN ×2 (10:25→23:09)
[2018-03-05] MEDS: LOSARTAN POTASSIUM 50 MG TAB PO SCH ×2 (10:25→20:41)
[2018-03-05] MEDS: NORTRIPTYLINE HCL 25 MG CAP PO SCH ×2 (10:25→20:46)
[2018-03-05] MEDS: ENOXAPARIN 40 MG/0.4 ML SYR SC SCH (10:25)
[2018-03-05] MEDS: traMADol 50 MG TAB PO PRN (13:25)
--- NOTE | 2018-03-05 16:42 | PDCARPN ---
Cardiology Progress Note Chief Complaint: htn urgency Assessment/Plan: Assessment: 82-y/o F h/o resistant htn, mitral valve disorder, prediabetes, recent hospitalization from 02/18- for htn with SBP 240. She was hyperkalemic and hyponatremic in that admission. Therefore her HCTZ and Spironolactone were stopped and she was started on Labetalol though she had heart block on this agent in the past. Her Labetalol and Hydralazine were uptitrated. She presented on 03/02 with syncope from seated position. Telemetry showed some sinus exit block. Her Labetalol was discontinued. She has been started on Amlodipine with Lasix. Amlodipine is listed as an allergy due to edema. BP control now improved. #. malignant htn: improved and appears controlled on current regimen HEATHER ruled out by previous ultrasounds improved now on Amlodipine, Guanfacine, Imdur, Losartan, Lasix we discussed avoiding NSAIDs due to her htn #. hyponatremia: improved will have her stay off HCTZ Plan: - Improved BP/ cardiology will sign off for now 03/05/18 16:40 Subjective: Still has DORSEY, shoulder pain. Unable to sleep at night. Reviewed/Discussed With: hospitalist (Dr. Parada) Objective: Vital Signs (8 Hrs) Temp Pulse Pulse Pulse Pulse Resp BP 03/05/18 15:48 97.6 F 84 18 147/70 H 03/05/18 12:03 98.0 F 86 17 153/82 H 03/05/18 08:57 77 85 74 BP BP BP Pulse Ox 03/05/18 15:48 97 03/05/18 12:03 94 03/05/18 08:57 171/63 H 145/86 H 139/60 H Intake/Output (24 Hrs) 03/04/18 03/05/18 03/06/18 05:59 05:59 05:59 Intake Total 420 1040 Output Total 600 800 Balance -180 240 Intake: Oral (ml) 420 1040 Output: Urine (ml) 600 800 Toilet 600 800 Other: Number of Voids Toilet 2 1 1 Number of Stools Toilet 1 1 Result Diagrams: 03/05/18 03:18 03/03/18 05:00 - Physical Exam Constitutional: healthy appearing Eyes: anicteric sclera Neurologic: AAOx3 Psychiatric: cooperative, interactive ICD10 Worksheet Patient Problems: Problems Problem Status Onset Hypertension Acute Syncope Acute History of - hypertension Active Muscle pain Active Bradycardia Acute Complete heart block Acute Hyperkalemia Acute Hyponatremia Acute Hypotension Acute
--- NOTE | 2018-03-05 17:25 | HOSPPROG ---
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; may be contributing to her hypertension -appreciate Neurology input -trial of gabapentin as an initial approach * uncontrolled hypertension with fairly severe numbers here, and chronically poorly controlled hypertension -previous evaluations including renal artery studies, metanephrines, aldosterone, remain activity, cortisol studies etc have all been unrevealing -has been tried on numerous medication regimens but never really with any consistent control over the past 4 years -meds as of today: losartan, guanfacine, aldactone, amlodipine * 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 last imaged in 2016 by MRI here * intermittent sinus pauses and bradycardia / brief syncope yesterday uncertain if it was related to bradyarrhythmia here likely caused by her high-dose labetalol; previous complete heart block and sinus bradycardia caused by beta-blockers she has used in the past * new onset of normocytic anemia uncertain etiology -needs close follow, may need further diagnostic assessment * 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 Min of Neurology. Headache etiology remains uncertain. Question of migraine variant or some other secondary type of headache. Dr. Min agrees with trial of gabapentin which was started last night. PLANS: * Continue trial of gabapentin for headaches; will increase dose to 600 at HS tonight * Could continue off all beta-blockers including labetalol due to sinus pauses and arrest; continue losartan and Norvasc; due to previous history of hyperkalemia will stop Aldactone and replace with Lasix; her Guanfacine has DORSEY listed as side effect - if HAs do not improve may need to consider stopping this med and replacing with other antihypertensive * Discontinue ibuprofen in case that is inhibiting the effects of losartan * Continue cardiac monitoring * Will clearly need ongoing outpatient follow-up for each of her ongoing issues ; if ongoing blood pressure issues after discharge she should probably be seen by customer care assistant or other blood pressure specialist * DVT prophylaxis Seen by me on hospitalist rounds and multidisciplinary rounds I reviewed today in detail with Yakelin ARREOLA, SUBJECTIVE: Did sleep from midnight until 5 when we awakened her for vital sign check Did have some headache last night and some hypertension to 170 systolic OBJECTIVE Vitals reviewed: Blood pressures overall better so far today after being high last evening. The high again was associated with headache temporarily. Pulse is now in good range, respirations normal, no fever Inpatient Services Director, my review: Sinus rhythm, no more sinus pauses since yesterday morning Exam: alert more awake and appears somewhat more comfortable today, oriented talkative skin warm dry color ok resps not labored lungs clear BSs heart regular abd soft nondistended nontender, bowel sounds present limbs warm, no edema iv site ok Lab data: Hemoglobin stable today at 10.6 Potassium and magnesium in good range Objective: Vital Signs Temp Pulse Resp BP Pulse Ox 36.4 C 84 18 147/70 H 97 03/05/18 15:48 03/05/18 15:48 03/05/18 15:48 03/05/18 15:48 03/05/18 15:48 Laboratory Results 03/05/18 03:18 03/04/18 03/05/18 03/06/18 06:59 06:59 06:59 Intake Total 420 1040 350 Output Total 600 800 Balance -180 240 350 - Time Spent With Patient Time Spent with Patient: greater than 35 minutes Time Spent with Patient: Greater than 35 minutes spent on this patients care, greater than 50% of time spent counseling, educating, and coordinating care regarding the above mentioned plan. ICD10 Worksheet Patient Problems: Problems Problem Status Onset Hypertension Acute Syncope Acute History of - hypertension Active Muscle pain Active Bradycardia Acute Complete heart block Acute Hyperkalemia Acute Hyponatremia Acute Hypotension Acute
[2018-03-05] MEDS: ISOSORBIDE MONONITRATE 30 MG TAB.SR PO SCH (20:40)
[2018-03-05] MEDS: guanFACINE HCL 1 MG TAB PO SCH (20:45)
[2018-03-05] MEDS: GABAPENTIN 300 MG CAP PO SCH (20:45)
[2018-03-05] MEDS: ASPIRIN EC 81 MG TAB PO SCH (20:46)
[2018-03-05] MEDS: ZOLPIDEM TARTRATE 5 MG TAB PO SCH (22:59)
[2018-03-06] MEDS: LEVOTHYROXINE 88 MCG TAB PO SCH (06:34)
[2018-03-06] MEDS: LOSARTAN POTASSIUM 50 MG TAB PO SCH ×2 (10:04→20:46)
[2018-03-06] MEDS: RALOXIFENE HCL 60 MG TAB PO SCH (10:04)
[2018-03-06] MEDS: NORTRIPTYLINE HCL 25 MG CAP PO SCH ×2 (10:05→20:46)
[2018-03-06] MEDS: ENOXAPARIN 40 MG/0.4 ML SYR SC SCH (10:05)
[2018-03-06] MEDS: FUROSEMIDE 20 MG TAB PO SCH (10:05)
--- NOTE | 2018-03-06 11:56 | ASMTCMCOM ---
CM Note CM Note Notes: Pts case discussed in tx rounds. Pt is not medically stable to d/c. CM notified [facility] that pt is not ready to d/c. CM to follow. Plan: [facility]; PT, OT, RN, w/ private duty caregivers Date Signed: 03/06/2018 11:55 AM Electronically Signed By:MARGIE Metzger
--- NOTE | 2018-03-06 12:26 | HOSPPROG ---
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; may be contributing to her hypertension -appreciate Neurology input - Discussed with pharmacy, headache common SE of Nitrates, Guanfacine, but patient has been on these medications chronically -trial of gabapentin as an initial approach, improved this morning * uncontrolled hypertension with fairly severe numbers here, and chronically poorly controlled hypertension -previous evaluations including renal artery studies, metanephrines, aldosterone, remain activity, cortisol studies etc have all been unrevealing -has been tried on numerous medication regimens but never really with any consistent control over the past 4 years -meds as of today: losartan, guanfacine, amlodipine, aldactone switched to Lasix during this admission, Imdur * 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 last imaged in 2016 by MRI here * intermittent sinus pauses and bradycardia / brief syncope yesterday uncertain if it was related to bradyarrhythmia here likely caused by her high-dose labetalol; previous complete heart block and sinus bradycardia caused by beta-blockers she has used in the past * new onset of normocytic anemia uncertain etiology -needs close follow, may need further diagnostic assessment * 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 with localize non radicular symptoms at both levels, currently having a fair bit of pain at both sites -will observe to see if she benefits from the gabapentin being used for headache syndrome * chronic left shoulder rotator cuff weakness and injury with mild pain there at present, will order Lidoderm patch today * history of thyroidectomy on replacement thyroid medicine PLANS: * Continue trial of gabapentin for headaches; increased dose to 600 at HS last night * Could continue off all beta-blockers including labetalol due to sinus pauses and arrest; continue losartan and Norvasc; due to previous history of hyperkalemia Aldactone stopped and replaced with Lasix; her Guanfacine and Nitrates have DORSEY listed as side effect - if HAs do not improve may need to consider stopping this med and replacing with other antihypertensive * Discontinue ibuprofen in case that is inhibiting the effects of losartan * Continue cardiac monitoring * Will clearly need ongoing outpatient follow-up for each of her ongoing issues ; if ongoing blood pressure issues after discharge she should probably be seen by bindery production manager or other blood pressure specialist * DVT prophylaxis Subjective: Patient reports improved headache this morning Objective: Vital Signs Temp Pulse Resp BP Pulse Ox 36.7 C 83 16 147/61 H 94 03/06/18 04:00 03/06/18 08:00 03/06/18 08:00 03/06/18 08:00 03/06/18 08:00 Laboratory Results 03/05/18 03:18 03/06/18 06:30 03/05/18 03/06/18 03/07/18 05:59 05:59 05:59 Intake Total 1040 600 Output Total 800 2 Balance 240 598 - Physical Exam Constitutional: no apparent distress Eyes: PERRL Ears, Nose, Mouth, Throat: moist mucous membranes Cardiovascular: regular rate and rhythym Respiratory: no respiratory distress Gastrointestinal: normoactive bowel sounds Skin: warm Musculoskeletal: pain with ROM (R shoulder) Neurologic: AAOx3 Psychiatric: interacting appropriately ICD10 Worksheet Patient Problems: Problems Problem Status Onset Hypertension Acute Syncope Acute History of - hypertension Active Muscle pain Active Bradycardia Acute Complete heart block Acute Hyperkalemia Acute Hyponatremia Acute Hypotension Acute
[2018-03-06] MEDS ORDERED: LIDOCAINE 4%/MENTHOL 1% PATCH TD SCH ×2 (12:30→21:15)
[2018-03-06] MEDS: guanFACINE HCL 1 MG TAB PO SCH (20:45)
[2018-03-06] MEDS: GABAPENTIN 300 MG CAP PO SCH (20:46)
[2018-03-06] MEDS: traMADol 50 MG TAB PO PRN (20:46)
[2018-03-06] MEDS: ASPIRIN EC 81 MG TAB PO SCH (20:47)
[2018-03-06] MEDS ORDERED: MINOXIDIL 2.5 MG TAB PO SCH (21:00)
[2018-03-06] MEDS ORDERED: PATCH REMOVAL 1 EA PATCH TD SCH (21:00)
[2018-03-06] MEDS: ACETAMINOPHEN 325 MG TAB PO PRN (23:12)
[2018-03-06] MEDS: ZOLPIDEM TARTRATE 5 MG TAB PO SCH (23:13)
[2018-03-07] MEDS: LEVOTHYROXINE 88 MCG TAB PO SCH (06:28)
[2018-03-07] MEDS: ENOXAPARIN 40 MG/0.4 ML SYR SC SCH (08:27)
[2018-03-07] MEDS: NORTRIPTYLINE HCL 25 MG CAP PO SCH (08:27)
[2018-03-07] MEDS: RALOXIFENE HCL 60 MG TAB PO SCH (08:27)
[2018-03-07] MEDS: LOSARTAN POTASSIUM 50 MG TAB PO SCH (08:27)
[2018-03-07] MEDS: FUROSEMIDE 20 MG TAB PO SCH (08:27)
--- NOTE | 2018-03-07 08:46 | NEUROPROG ---
Assessment: He is total unit time 15 min. 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 I agree that it is uncertain about exact role of her various medications in contributing to the headache syndrome. Subjective: The patient says that she is feeling better this morning. She has mild headache. Her gabapentin was increased a little bit yesterday evening to 600 mg. No other new complaints. Objective: Vital Signs Temp Pulse Resp BP Pulse Ox 36.7 C 73 14 140/53 H 90 L 03/07/18 07:17 03/07/18 07:17 03/07/18 07:17 03/07/18 07:17 03/07/18 07:17 Laboratory Results 03/05/18 03:18 03/06/18 06:30 03/06/18 03/07/18 03/08/18 05:59 05:59 05:59 Intake Total 600 940 Output Total 2 Balance 598 940 She is more alert this morning and seems cognitively intact. She does have a little bit of complaint of shoulder pain on the right but nothing else more specific. Allergies/Adverse Reactions: estradiol Allergy (Severe, Verified 02/18/18 21:16) Unknown lisinopril Allergy (Severe, Verified 02/18/18 21:17) Unknown amlodipine [From Norvasc] Allergy (Unknown, Verified 03/05/18 11:52) Edema codeine Allergy (Unknown, Verified 03/05/18 11:53) Vomiting labetalol Allergy (Verified 03/06/18 09:33) Heart Block
[2018-03-07] MEDS ORDERED: PATCH REMOVAL 1 EA PATCH TD SCH (09:00)
[2018-03-07] MEDS ORDERED: DIPHENHYDRAMINE CREAM TP PRN (09:44)
[2018-03-07] MEDS ORDERED: diphenhydrAMINE 25 MG CAP PO PRN (09:44)
--- NOTE | 2018-03-07 10:22 | ASMTLACE ---
LACE Length of stay for Answers: 4-6 days current admission Acuity / Level of Answers: Yes Care: Did the patient have an inpatient admission? Comorbidities - select Answers: Congestive heart failure all that apply Other Notes: HTN; hypothyroid # of Emergency department Answers: 3-4 visits in the last 6 months Score: 13 Date Signed: 03/07/2018 10:22 AM Electronically Signed By:MARGIE Metzger
--- NOTE | 2018-03-07 10:27 | ASMTDCNOTE ---
Case Management Discharge Discharge Order Complete? Answers: Yes Patient to Obtain Answers: via Family Medications Transportation Arranged Answers: Family/Friends EMTALA Complete Answers: No Case Management Transport Answers: No Form Complete Faxed Final Orders Answers: Yes Agency/Facility Transfer Answers: Yes Report Printed & Faxed to Receiving Agency Family Notified Answers: No Discharge Comments Notes: Pts case discussed w/ BERNARD Toth. Janey already notified pts daughter of the d/c. CM notified [facility] of the d/c. Janey will call to give report. No other needs at this time. CM available for changes. Plan: [facility]; PT, OT, RN w/ private duty caregivers Date Signed: 03/07/2018 10:26 AM Electronically Signed By:MARGIE Metzger
[2018-03-07 11:09] VITALS: BP 129/65
--- NOTE | 2018-03-07 12:19 | ASMTCMCOM ---
CM Note CM Note Notes: CM spoke to pts daughter Kasey on the phone. Kasey reports that they do not have the funds to pay for private duty caregivers. Kasey reports that pt might have gotten private duty are through her insurance before. CM left a msg for Umair w/ [employer]. CM completed HCBS application w/ [employer]. CM notified [facility] that pt will need a director social to follow up once she leaves the hospital. CM provided a copy of the application to family. Another copy is in pts chart. Date Signed: 03/07/2018 12:18 PM Electronically Signed By:MARGIE Metzger
--- NOTE | 2018-03-07 12:19 | PDIAF ---
- Diagnosis Diagnosis: Uncontrolled HTN, Headache Code Status: Full Code - Medication Management Discharge Medications: electronically signed and located in the Home Medication List. - Orders Services needed: Home Fdc Care Face to Face: I certify that this patient was under my care and that I had the required [id number] encounter meeting the encounter requirements on the discharge day. My findings support the fact that the patient is homebound as defined in Home Care Face to Face Continued: CMS Chapter 7 Medicare Benefits Manual 30.1.1 , The condition of the patient is such that there exists a normal inability to leave home and consequently, leaving home would require a considerable and taxing effort. - Follow Up Care Current Providers and Referrals: Patient,NotPresent [Unknown] - As per Instructions Viraj Min MD [Medical Doctor] -
--- NOTE | 2018-03-07 12:20 | ASDISCHSUM ---
Discharge Information Plan Status:Home with Home Health Medically Cleared to Leave:03/06/2018 Discharge Date:03/06/2018 CM D/C Disposition: ADT D/C Disposition: Projected Discharge Date:03/07/2018 11:00 AM Transportation at D/C: Discharge Delay Reason: Follow-Up Date:03/07/2018 11:00 AM Discharge Slot: Final Diagnosis: Placement Information Referral Type:*Home Health Care Services Referral ID:[id number] Provider Name:[facility] Address 1:[address] [facility] [address] Address 2: City:[place] Selection Factors: State:[place] Patient Contact Information Contact Name:MARIELASTELLA Relationship: Address:[facility] [address] City:[place] Alternate Phone: State/Zip Code:[place] [address] Email: Financial Information Financial Class:Medicare Primary Plan Desc:MEDICARE IP PART B ONLY Primary Plan Number:[id number] Secondary Plan Desc:MED[place] Secondary Plan Number:[id number] Assessment Information [facility] CM Progress Note CM Note CM Note Notes: Patient admitted after syncopal episode. She has a complicated history of intractable HTN. Cardiology has been consulted. I spoke with mindy's daughter Sully. She requested information on help at home since patient's is also elderly. I explained difference between skilled and unskilled home care. I gave a list of private duty agencies. I sent a referral to [facility] to RN/PT/OT. Case Management will follow. Date Signed: 03/03/2018 11:16 AM Electronically Signed By:Marylin Deutsch RN ALISSON LACE Length of stay for Answers: 4-6 days current admission Acuity / Level of Answers: Yes Care: Did the patient have an inpatient admission? Comorbidities - select Answers: Congestive heart failure all that apply Other Notes: HTN; hypothyroid # of Emergency department Answers: 3-4 visits in the last 6 months Score: 13 Date Signed: 03/07/2018 10:22 AM Electronically Signed By:MARGIE Metzger [facility] CM Progress Note CM Note CM Note Notes: Pts case discussed in tx rounds. Pt is not medically stable to d/c. CM notified [facility] that pt is not ready to d/c. CM to follow. Plan: [facility]; PT, OT, RN, w/ private duty caregivers Date Signed: 03/06/2018 11:55 AM Electronically Signed By:MARGIE Metzger Case Management Discharge Plan Note Case Management Discharge Discharge Order Complete? Answers: Yes Patient to Obtain Answers: via Family Medications Transportation Arranged Answers: Family/Friends EMTALA Complete Answers: No Case Management Transport Answers: No Form Complete Faxed Final Orders Answers: Yes Agency/Facility Transfer Answers: Yes Report Printed & Faxed to Receiving Agency Family Notified Answers: No Discharge Comments Notes: Pts case discussed w/ BERNARD Toth. Janey already notified pts daughter of the d/c. CM notified [facility] of the d/c. Janey will call to give report. No other needs at this time. CM available for changes. Plan: [facility]; PT, OT, RN w/ private duty caregivers Date Signed: 03/07/2018 10:26 AM Electronically Signed By:MARGIE Metzger [facility] CM Progress Note CM Note CM Note Notes: DIANA spoke to pts daughter Kasey on the phone. Kasey reports that they do not have the funds to pay for private duty caregivers. Kasey reports that pt might have gotten private duty are through her insurance before. CM left a msg for Umair w/ [facility]. CM completed HCBS application w/ [employer]. DIANA notified [facility] that pt will need a psychiatric social worker to follow up once she leaves the hospital. DIANA provided a copy of the application to family. Another copy is in pts chart. Date Signed: 03/07/2018 12:18 PM Electronically Signed By:MARGIE Metzger Intervention Information
--- NOTE | 2018-03-07 12:33 | PDDCSUM ---
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; may be contributing to her hypertension -appreciate Neurology input - Discussed with pharmacy, headache common SE of Nitrates, Guanfacine, but patient has been on these medications chronically -trial of gabapentin as an initial approach, improved, dose increased to 600 mg qd - F/u as outpatient with Neurology * uncontrolled hypertension with fairly severe numbers here, and chronically poorly controlled hypertension -previous evaluations including renal artery studies, metanephrines, aldosterone, remain activity, cortisol studies etc have all been unrevealing -has been tried on numerous medication regimens but never really with any consistent control over the past 4 years -meds as of today: losartan, guanfacine, amlodipine, aldactone switched to Lasix during this admission, Imdur switched to Minoxidil * 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 last imaged in 2016 by MRI here * intermittent sinus pauses and bradycardia / brief syncope yesterday uncertain if it was related to bradyarrhythmia here likely caused by her high-dose labetalol; previous complete heart block and sinus bradycardia caused by beta-blockers she has used in the past * new onset of normocytic anemia uncertain etiology -needs close follow, may need further diagnostic assessment * 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
--- NOTE | 2018-03-07 12:53 | ASMTCMCOM ---
DIANA Note DIANA Note Notes: DIANA spoke to Umair from [facility]. Pts case was closed for HCBS a few months ago because she no longer needed the services. DIANA informed pts daughter of this. She will follow up w/ Umair tomorrow to see if they can expedite this process. Date Signed: 03/07/2018 12:53 PM Electronically Signed By:MARGIE Metzger
--- NOTE | 2018-03-08 14:22 | ASMTCMCOM ---
CM Note CM Note Notes: 03/08/2018 Case Management Note Phone call from daughter of pt requesting information on HCBS services. Daughter is upset that application can take up to 30 days. Pt has home support worker PT OT coming today. Provided [facility] information. Encourage daughter to explore program benefits. Provided info on palliative care. Encouraged daughter to contact PCP for info. Date Signed: 03/08/2018 02:22 PM Electronically Signed By:Aileen Garcia RN
== END 2018-03-07 12:27 | disposition home health service (06) | DRG 305 ==
LOC: EDUNIT# → F2W 20:52 → OBSVTOIN 03-03 20:16
PROVIDERS: ADMIT Student in an Organized Health Care Education/Training Program; ATTEND Internal Medicine
DX: I10 Essential (primary) hypertension (principal); R51 Headache; M75.101 Unspecified rotator cuff tear or rupture of right shoulder, not specified as traumatic; D64.9 Anemia, unspecified; I50.32 Chronic diastolic (congestive) heart failure; I35.1 Nonrheumatic aortic (valve) insufficiency; E89.0 Postprocedural hypothyroidism; T44.8X5A Adverse effect of centrally-acting and adrenergic-neuron-blocking agents, initial encounter; I67.1 Cerebral aneurysm, nonruptured; M47.812 Spondylosis without myelopathy or radiculopathy, cervical region; M47.816 Spondylosis without myelopathy or radiculopathy, lumbar region; M81.0 Age-related osteoporosis without current pathological fracture
CPT/HCPCS: 84484-ER; 97116-GP; 97162-GP; 97166-GO; 97530-GO; 97530-GP; 97535-GO; G0378; G8978-GP-CI; G8978-GP-CJ; G8979-GP-CI; G8980-GP-CI; G8987-GO-CJ; G8988-GO-CI; J1650

== ENCOUNTER 2018-04-18 16:31 | Emergency (ER) | payer OTHER, MEDICAID ==
[2018-04-18] MEDS ORDERED: ACETAMINOPHEN 500 MG TAB PO ONE (16:45)
--- NOTE | 2018-04-18 18:09 | EDPHY ---
H & P Stated Complaint: High b/p Time Seen by Provider: 04/18/18 18:08 - Personal History Current Tetanus/Diphtheria Vaccine: Yes - Medical/Surgical History Hx Asthma: No Hx Chronic Respiratory Disease: No Hx Diabetes: No Hx Cardiac Disease: Yes Hx Renal Disease: No Hx Cirrhosis: No Hx Alcoholism: No Hx HIV/AIDS: No Hx Splenectomy or Spleen Trauma: No Other PMH: HTN, MRI abnormal?, hysterectomy, hypothyroid, osteoporosis, Rotator cuff tear R - Social History Smoking Status: Former smoker Constitutional: Initial Vital Signs Temperature (C) 36.4 C 04/18/18 16:40 Heart Rate 98 04/18/18 16:40 Respiratory Rate 18 04/18/18 16:40 Blood Pressure 203/84 H 04/18/18 16:40 O2 Sat (%) 99 04/18/18 16:40 O2 Delivery Mode Room Air Allergies/Adverse Reactions: estradiol Allergy (Severe, Verified 04/18/18 16:42) Unknown lisinopril Allergy (Severe, Verified 04/18/18 16:42) Unknown amlodipine Allergy (Unknown, Unverified 04/18/18 16:42) Edema codeine Allergy (Unknown, Verified 04/18/18 16:42) Vomiting labetalol Allergy (Verified 04/18/18 16:42) Heart Block Home Medications: Medication Instructions Recorded Aspirin EC [Aspirin EC 81 mg (*)] 81 mg PO HS 02/18/18 Calcium Carb W/Vit D [Calcium Carb 500 mg PO BIDMEAL 02/18/18 W/Vit D 500/200 (*)] Cyanocobalamin (Vitamin B-12) 2,500 mcg SL DAILY 02/18/18 [Vitamin B-12] Levothyroxine [Synthroid 88 mcg 88 mcg PO DAILY06 02/18/18 (*)] Losartan Potassium [Cozaar 50 mg 50 mg PO BID 02/18/18 (*)] Multivitamins [Multivitamin (*)] 1 each PO DAILY 02/18/18 Nortriptyline HCl [Pamelor 25 mg 25 mg PO BID 02/18/18 (*)] Raloxifene HCl [Evista] 60 mg PO DAILY 02/18/18 Zolpidem Tartrate [Ambien 5MG (*)] 5 mg PO HS 02/18/18 guanFACINE HCL [Guanfacine HCl 1 2 mg PO HS 02/18/18 MG (*)] Ibuprofen [Motrin (*)] 400 mg PO TID PRN 03/02/18 Isosorbide Mononitrate [Isosorbide 60 mg PO HS 03/02/18 Mononitrate ER] Furosemide [Lasix 20 MG (*)] 20 mg PO DAILY #30 tab 03/07/18 Gabapentin [Neurontin 300 MG (*)] 600 mg PO HS #60 cap 03/07/18 Minoxidil [Minoxidil 2.5 mg (*)] 5 mg PO HS #60 tab 03/07/18 amLODIPine BESYLATE [Norvasc 10 mg 10 mg PO DAILY #30 tab 03/07/18 (*)] diphenhydrAMINE [Benadryl 25 MG 25 mg PO Q6HRS PRN cap 03/07/18 (*)] Medical Decision Making ED Course/Re-evaluation: CHIEF COMPLAINT: Headache, high blood pressure HISTORY OF PRESENT ILLNESS: The patient is an 83 y/o female with a history of hypertension complaining of a headache and high blood pressure. For the last several months she has been hospitalized several times for a hypertensive emergency. During her last admission, 4 weeks ago, she was placed on Losartan 50mg PO BID, which finally helped her hypertension. However, several days ago the Losartan was recalled as it may be contaminated with carcinogens. She was switched to Irbesartan 150mg QD. However, since switching medications she has developed a shooting headache which is only mildly alleviated with Tylenol. Today she took her blood pressure , and the systolic pressure was around 230, so her daughter brought the patient to the emergency department. No fever, chest pain, shortness of breath, abdominal pain, urinary or bowel complaints, numbness, paresthesias. REVIEW OF SYSTEMS: A comprehensive 10 system review of systems is otherwise negative aside from elements mentioned in the history of present illness and medical decision making. PHYSICAL EXAM: HR, BP, O2 Sat, RR. Temp noted General Appearance: Sitting in a dark room, alert, well hydrated, appropriate, and non-toxic appearing. Head: Atraumatic without scalp tenderness or obvious injury Eyes: Pupils equal, round, reactive to light and accommodation, EOMI, no trauma , no injection. Ears: Clear bilaterally, no perforation, normal landmarks Nose: Atraumatic, no rhinorrhea, clear. Throat: There is no erythema or exudates, no lesions, normal tonsils, mucus membranes moist. Neck: Supple, 2+ carotid upstroke, nontender, no lymphadenopathy. Respiratory: No retractions, no distress, no wheezes, and no accessory muscle use. Lungs are clear to auscultation bilaterally. Cardiovascular: Regular rate and rhythm, no murmurs, rubs, or gallops. Bilateral carotid, radial, dorsalis pedis, and posterior tibial pulses intact. Good capillary refill all extremities. Gastrointestinal: Abdomen is soft, nontender, non-distended, no masses, no rebound, no guarding, no peritoneal signs. Musculoskeletal: Normal active ROM of all extremities, atraumatic. Neurological: Alert, appropriate, and interactive. The patient has normal DTRs and non-focal cranial nerves, motor, sensory, and cerebellar exam. Skin: No rashes, good turgor, no nodules on palpation. Past medical history: Hypertension, hypothyroid, osteoporosis, right rotator cuff tear, heart murmur Past surgical history: Hysterectomy Family history: Denies Social history: Daughter and at bedside, lives in [place], retired DIAGNOSTICS/PROCEDURES/CRITICAL CARE TIME: Not indicated. DIFFERENTIAL DIAGNOSIS: The differential diagnosis for the patient's headache included but was not limited to hypertensive urgency, subarachnoid hemorrhage, migraine headache, tension headache and infectious causes such as meningitis, pharyngitis and sinusitis. MEDICAL DECISION MAKING: he patient is an 83 y/o female with a history of hypertension complaining of a headache and high blood pressure. She recently switched from Losartan 50mg BID to Irbesartan 150mg QD. On exam she appears uncomfortable but has a normal cardiorespiratory exam. Her blood pressure is currently 203/118. She is having a hypertensive urgency, but not an emergency. I have discussed the risks and benefits of taking Losartan again. I believe the benefits outweigh the risks of Losartan, which the family agrees with. Labs ordered to evaluate end-organ damage. 50mg PO Losartan administered. 1902: Patient's BP has improved to 175/81 after Lisinopril. 1929: Reassessed patient, she is able to ambulate to the bathroom with some assistance. She is feeling mildly better. We will recycle her pressure when she returns from the bathroom. 1941: Patient's BP is 180/79. 1944: Reassessed patient and discussed lab findings. She now reports that she forgot to take Minoxidil. There is no evidence of end-organ damage. I also discussed the plan to take Losartan, which the family is comfortable is with. Patient is still having a headache; 30 IV Toradol and 2.5mg PO Minoxidil administered. 2034: Reassessed patient after Toradol and Minoxidil. Her BP is now 164/70 and her headache has completely resolved. I have offered her admission for further observation, which the patient and her family have politely declined. Return precautions provided; patient is comfortable with this plan. - Data Points Laboratory Results: Laboratory Results 04/18/18 18:40 04/18/18 18:40 04/18/18 04/18/18 04/18/18 18:44 18:40 18:40 WBC 8.63 10^3/uL 10^3/uL (3.80-9.50) RBC 4.84 10^6/uL 10^6/uL (4.18-5.33) Hgb 14.7 g/dL g/dL (12.6-16.3) Hct 42.7 % % (38.0-47.0) MCV 88.2 fL fL (81.5-99.8) MCH 30.4 pg pg (27.9-34.1) MCHC 34.4 g/dL g/dL (32.4-36.7) RDW 14.7 % % (11.5-15.2) Plt Count 351 10^3/uL 10^3/uL (150-400) MPV 9.5 fL fL (8.7-11.7) Neut % (Auto) 64.2 % % (39.3-74.2) Lymph % (Auto) 25.6 % % (15.0-45.0) [place] % (Auto) 8.9 % % (4.5-13.0) Eos % (Auto) 0.2 % L % (0.6-7.6) Baso % (Auto) 0.6 % % (0.3-1.7) Nucleat RBC Rel Count 0.0 % % (0.0-0.2) Absolute Neuts (auto) 5.54 10^3/uL 10^3/uL (1.70-6.50) Absolute Lymphs (auto) 2.21 10^3/uL 10^3/uL (1.00-3.00) Absolute Monos (auto) 0.77 10^3/uL 10^3/uL (0.30-0.80) Absolute Eos (auto) 0.02 10^3/uL L 10^3/uL (0.03-0.40) Absolute Basos (auto) 0.05 10^3/uL 10^3/uL (0.02-0.10) Absolute Nucleated RBC 0.00 10^3/uL 10^3/uL (0-0.01) Immature Gran % 0.5 % % (0.0-1.1) Immature Gran # 0.04 10^3/uL 10^3/uL (0.00-0.10) Sodium 135 mEq/L mEq/L (135-145) Potassium 3.6 mEq/L mEq/L (3.5-5.2) Chloride 102 mEq/L mEq/L (97-110) Carbon Dioxide 23 mEq/l mEq/l (22-31) Anion Gap 10 mEq/L mEq/L (6-14) BUN 12 mg/dL mg/dL (7-23) Creatinine 0.6 mg/dL mg/dL (0.6-1.0) Estimated GFR > 60 Glucose 130 mg/dL H mg/dL (70-100) Calcium 9.2 mg/dL mg/dL (8.5-10.4) POC Troponin I 0.01 ng/mL ng/mL (0.00-0.08) Medications Given: Discontinued Medications Acetaminophen (Tylenol) 1,000 mg PO EDNOW ONE Stop: 04/18/18 16:46 Last Admin: 04/18/18 16:48 Dose: 1,000 mg Ketorolac Tromethamine (Toradol) 30 mg IVP EDNOW ONE Stop: 04/18/18 19:48 Last Admin: 04/18/18 20:02 Dose: 30 mg Losartan Potassium (Cozaar) 50 mg PO EDNOW ONE Stop: 04/18/18 18:21 Last Admin: 04/18/18 18:40 Dose: 50 mg Minoxidil (Minoxidil) 2.5 mg PO EDNOW ONE Stop: 04/18/18 19:53 Last Admin: 04/18/18 20:11 Dose: 2.5 mg Point of Care Test Results: Chemistry 04/18/18 18:44 POC Troponin I 0.01 ng/mL ng/mL (0.00-0.08) Departure - Departure Disposition: Home, Routine, Self-Care Clinical Impression: Hypertensive urgency Headache Qualifiers: Headache type: unspecified Headache chronicity pattern: acute headache Intractability: intractable Qualified Code(s): R51 - Headache Condition: Good Instructions: Hypertensive Crisis (ED), Hypertension (ED) Additional Instructions: 1. Start taking Losartan again. 2. Follow-up with your primary doctor within 72 hours. 3. Return to the Emergency Department for fever, chest pain, shortness of breath , increasing pain or other worsening of condition. Referrals: Cate Miguel MD [Medical Doctor] - As per Instructions Report Scribed for: Aidan Torres Report Scribed by: Ashley Leblanc Date of Report: 04/18/18 Time of Report: 18:09
[2018-04-18] MEDS ORDERED: LOSARTAN POTASSIUM 50 MG TAB PO ONE (18:20)
[2018-04-18 19:05] LABS: PLATELET COUNT 351 10^3/uL (150-400)
[2018-04-18] MEDS ORDERED: KETOROLAC 30 MG/1 ML SDV IVP ONE (19:47)
[2018-04-18] MEDS ORDERED: MINOXIDIL 2.5 MG TAB PO ONE (19:52)
[2018-04-18 20:36] VITALS: BP 164/70
== END 2018-04-18 20:47 | disposition home or self-care (01) ==
DX: I10 Essential (primary) hypertension (principal); R51 Headache
CPT/HCPCS: 96374; 99284; J1885; 84484-ER